=== PATIENT | male | born 1940 | race Caucasian/White ===

== ENCOUNTER 2018-10-28 01:06 | Inpatient (IN) | payer MEDICAID, OTHER ==
[2018-10-28] VITALS (17 sets, daily range): BP systolic 135–177; BP diastolic 64–81; PULSE 71–91; RESP 12–20; Ht 172.7 cm; Wt 84.3 kg
[~2018-10-28] VITALS: Ht 172.7 cm; Wt 84.3 kg
[~2018-10-28 01:06] MED LIST: CALC667C PO; ESCI10TA PO; FURO80TA3 PO; GABA100C PO; LEVO500T48 PO; LOSA50TA14 PO; METO-319 PO; NEPH PO; NIFE60TA18 PO; PANT40TA3 PO; RANI150T5 PO
--- NOTE | 2018-10-28 01:15 | ERD ---
ER Documentation Chief Complaint Chief Complaint sob HPI The patient is a 78-year-old male, presenting to the ER because of acute on c hronic shortness of breath, worse for the last an hour and a half according to EMS. He is due for dialysis today. The history is limited due to language barrier and clinical condition. He denies headache, neck pain, chest pain, abdominal pain, vomiting, dysuria, diarrhea. He does not smoke nor drink Past medical history: Emphysema, chronic kidney disease on hemodialysis Tuesday and Tuesday, hypertension Past surgical history: Left upper extremity AV fistula ROS All systems reviewed and are negative except as per history of present illness. Allergies Allergies: Coded Allergies: Unknown: Unable to obtain (Unverified , 10/28/18) Physical Exam Vitals Vital Signs Date Temp Pulse Resp B/P (MAP) Pulse Ox O2 O2 Flow FiO2 Time Delivery Rate 10/28/18 80 14 132/72 96 Nasal 05:02 (92) Cannula 10/28/18 100 8.0 02:54 10/28/18 84 14 151/59 99 BIPAP 02:29 (89) 10/28/18 88 96 50 01:20 10/28/18 98.5 91 27 141/52 85 01:13 (81) Physical Exam Const: Mild acute distress. Head: Atraumatic. Eyes: Normal Conjunctiva. ENT: Normal External Ears, Nose and Mouth. Neck: Full range of motion. No meningismus. Resp: Bibasilar crackle Cardio: Regular rate and rhythm. Abd: Soft, non distended, normal bowel sounds, non tender. Skin: No petechiae or rashes. Back: No midline or flank tenderness. Ext: No cyanosis, or edema. Neur: Awake and alert. No focal deficit Psych: Limited due to his condition Result Diagram: 10/28/18 0136 10/28/18 0136 Results 24 hrs Laboratory Tests Test 10/28/18 01:36 10/28/18 02:30 White Blood Count 7.5 10^3/ul Red Blood Count 2.64 10^6/ul Hemoglobin 8.9 g/dl Hematocrit 27.6 % Mean Corpuscular Volume 104.5 fl Mean Corpuscular Hemoglobin 33.7 pg Mean Corpuscular Hemoglobin Concent 32.2 g/dl Red Cell Distribution Width 14.1 % Platelet Count 153 10^3/UL Mean Platelet Volume 10.3 fl Immature Granulocytes % 0.400 % Neutrophils % 73.4 % Lymphocytes % 17.9 % Monocytes % 7.8 % Eosinophils % 0.0 % Basophils % 0.5 % Nucleated Red Blood Cells % 0.0 /100WBC Immature Granulocytes # 0.030 10^3/ul Neutrophils # 5.5 10^3/ul Lymphocytes # 1.4 10^3/ul Monocytes # 0.6 10^3/ul Eosinophils # 0.0 10^3/ul Basophils # 0.0 10^3/ul Nucleated Red Blood Cells # 0.0 10^3/ul Prothrombin Time 14.3 Sec Prothrombin Time Ratio 1.1 INR International Normalized Ratio 1.10 Activated Partial Thromboplast Time 33.7 Sec Sodium Level 140 mmol/L Potassium Level 5.2 mmol/L Chloride Level 100 mmol/L Carbon Dioxide Level 30 mmol/L Anion Gap 10 Blood Urea Nitrogen 67 mg/dl Creatinine 9.60 mg/dl Est Glomerular Filtrat Rate mL/min mL/min Glucose Level 131 mg/dl Calcium Level 9.1 mg/dl Total Bilirubin 0.4 mg/dl Direct Bilirubin 0.00 mg/dl Indirect Bilirubin 0.4 mg/dl Aspartate Amino Transf (AST/SGOT) 37 IU/L Alanine Aminotransferase (ALT/SGPT) 36 IU/L Alkaline Phosphatase 90 IU/L Troponin I 0.015 ng/ml Total Protein 6.9 g/dl Albumin 3.8 g/dl Globulin 3.10 g/dl Albumin/Globulin Ratio 1.22 Blood Gas Specimen Source Blood arterial Arterial Blood Date Drawn 10/28/2018 2:30:51 AM Arterial Blood pH (Temp corrected) 7.440 Arterial Blood pCO2 (Temp correct) 41.0 mmhg Arterial Blood pO2 (Temp corrected) 138.9 mmHG Arterial Blood HCO3 27.2 mmol/L Arterial Blood Base Excess 2.8 mmol/L Arterial Blood Oxygen Saturation 98.3 mmHG Kraig Test ACCEPTAB Arterial Blood Gas Puncture Site Right Radial Arterial Blood Carboxyhemoglobin 0.3 % Arterial Blood Methemoglobin 0.5 % Blood Gas A-a O2 Differential 171.5 mmHg Oxyhemoglobin Percent 97.5 % Blood Gas Temperature 37.0 C Blood Gas Respiration Rate 20.0 Blood Gas Actual Respiration Rate 20 Blood Gas Modality MASK - BIPAP FiO2 50.0 % Blood Gas Pressure Support 10 Blood Gas IPAP/EPAP Ratio 15/5 Blood Gas Critical Value Read Back ANGEL Rosa MD Blood Gas Notified Whom KB Blood Gas Notified Time 10/28/2018 2:41:33 AM Current Medications Medications Dose Sig/Soila Start Time Status Last (Trade) Ordered Route PRN Stop Time Admin Dose Reason Admin IV Flush 3 ml PER 10/28/18 (NS 3 ml) PROTOCOL IV 05:00 Ondansetron 4 mg Q6H PRN 10/28/18 HCl (Zofran IV 05:00 Inj) NAUSEA/VOMITI NG 650 mg Q6H PRN 10/28/18 Acetaminophen PO .PAIN 1-3 05:00 (Tylenol OR TEMP Tab) Docusate 100 mg Q12H PRN 10/28/18 Sodium PO 05:00 (Colace) .CONSTIPATION Bisacodyl 5 mg DAILY PRN 10/28/18 (Dulcolax) PO 05:00 .CONSTIPATION Heparin 5,000 unit Q8 SC 10/28/18 Sodium 06:00 (Porcine) (Heparin (5000 Units/1ml)) Procedures/[place] [address] Radiology Main Line: [phone] DIAGNOSTIC IMAGING REPORT Patient: JESSICA LAUREN : 1940 Age: 78 Sex: M MR #: [id number] DOS: 10/28/18 0118 Ordering MD: THIERRY ORTIZ MD Location: E/R Room/Bed: PROCEDURE: Single view chest. CLINICAL INDICATION: Shortness of breath TECHNIQUE: Single view of the chest was obtained COMPARISON: None. FINDINGS: There is generalized interstitial prominence and bronchial wall thickening in the perihilar regions and lung bases. Costophrenic blunting and probable small bilateral effusions. Cardiac silhouette and mediastinal contours are unremarkable. There are atherosclerotic calcifications at the aortic arch. Degenerative marginal spurring throughout the thoracic spine, regional bones otherwise appear intact. IMPRESSION: Interstitial prominence and bronchial wall thickening compatible with mild edema versus inflammation. Probable small bilateral effusions. Aortic atherosclerosis. RPTAT: [facility] x-Hardik Bowns, Physician Date Time Electronically viewed and signed by Physician Bassam on 10/28/2018 03:01 xB/ CC: THIERRY ORTIZ MD [id number] EKG: Read by emergency physician Rate/Rhythm: Normal Sinus Rhythm 84 beats/min QRS, ST, T-waves: No ST elevation, no T inversion Impression: Normal EKG MEDICAL MAKING DECISION: The patient is a 78-year-old male, presenting with acute respiratory failure due to acute fluid overload He was initially put on BiPAP and he was able to tolerate BiPAP well. He was then weaned to 50% Venturi mask and 4 L nasal cannula The differential diagnoses considered include but are not limited to asthma, COPD, pneumonia, pulmonary embolus, pleural effusion, congestive heart failure, pna. Critical Care: Time: 35 minutes excluding all billable procedures. Treatments/Evaluations: Close monitoring and treatment of unstable vital signs, cardiorespiratory, and neurologic status, while maintaining tight balance of fluid, respiratory, and cardiac interventions. Departure Diagnosis: Primary Impression: Respiratory failure, acute Additional Impressions: Fluid overload Anemia Condition: Stable Comments I discussed the findings with the patient. I notified the patient with Dr. Jaquez at 4:10am via [employer], who was made aware of the lab, the treatment, the patient condition. The patient is admitted to Tel Disclaimer: Inadvertent spelling and grammatical errors are likely due to EH R/dictation software use and do not reflect on the overall quality of patient care. Also, please note that the electronic time recorded on this note does not necessarily reflect the actual time of the patient encounter. THIERRY ORTIZ MD Oct 28, 2018 01:15
[2018-10-28] MEDS ORDERED: NACL 0.9% 3 ML SYG IV SCH (05:00)
[2018-10-28] MEDS ORDERED: ONDANSETRON 4 MG INJ IV PRN (05:00)
[2018-10-28] MEDS ORDERED: DOCUSATE SODIUM 100 MG CAP PO PRN (05:00)
[2018-10-28] MEDS ORDERED: BISACODYL (EC) 5 MG TAB PO PRN (05:00)
[2018-10-28] MEDS ORDERED: ACETAMINOPHEN 325 MG TAB PO PRN (05:00)
[2018-10-28] MEDS: HEPARIN 5,000 UNIT/1 ML VIAL SC SCH ×3 (05:18→21:09)
[2018-10-28] MEDS ORDERED: METHYLPREDNISOLONE 125 MG INJ IV ONE (06:00)
[2018-10-28] MEDS ORDERED: PANTOPRAZOLE (EC) 40 MG TAB PO ONE (08:30)
[2018-10-28] MEDS: ALBUTEROL/IPRATROPIUM (NEB) 3 ML AMP HHN SCH ×4 (09:55→21:00)
[2018-10-28] MEDS ORDERED: DEXTROSE 50% 50 ML SYRINGE IV PRN (11:00)
[2018-10-28] MEDS ORDERED: INSULIN REGULAR, HUMAN 100 UNIT/1 ML 3ML VIAL IVP STA (11:11)
--- NOTE | 2018-10-28 11:46 | PN ---
Date/Time of Note Date/Time of Note DATE: 10/28/18 TIME: 11:30 Assessment/Plan VTE Prophylaxis SCD applied (from Nsg): Yes Pharmacological prophylaxis: heparin Lines/Catheters IV Catheter Type (from Nrsg): Saline Lock Urinary Cath still in place: No Assessment/Plan Assessment/Plan 1. Acute respiratory distress - fluid overload vs COPD exacerbation - Nebs PRN - CXR noted with mild edema vs inflammation - patient believes GI issues exacerbate his respiratory distress 2. Acute epigastric discomfort - sounds like GERD and daughter requesting GI workup. Does has an outpatient EGD scheduled for next week - started on PPI BID and Carafate QID 3. Acute COPD exacerbation - started on steroids and will taper based on improvement in respiratory status - Nebs on board - no coughing noted and will hold off on antibiotics 4. ESRD on HD - Nephrology consulted and TTSa schedule for HD 5. Abnl on tele monitoring - repeat EKG shows no abnormalities - discussed with cardiology and most likely artifact 6. hyperkalemia - 5.2. given insulin 7. anemia of chronic disease - no need for transfusions at this time 8. Disposition - HD today and will continue on steroid taper - GI consulted for workup of epigastric discomfort Result Diagram: 10/28/18 0136 10/28/18 0136 Results 24hrs Laboratory Tests Test 10/28/18 01:36 10/28/18 02:30 White Blood Count 7.5 Red Blood Count 2.64 L Hemoglobin 8.9 L Hematocrit 27.6 L Mean Corpuscular Volume 104.5 H Mean Corpuscular Hemoglobin 33.7 H Mean Corpuscular Hemoglobin Concent 32.2 Red Cell Distribution Width 14.1 Platelet Count 153 Mean Platelet Volume 10.3 Immature Granulocytes % 0.400 Neutrophils % 73.4 Lymphocytes % 17.9 Monocytes % 7.8 Eosinophils % 0.0 Basophils % 0.5 Nucleated Red Blood Cells % 0.0 Immature Granulocytes # 0.030 Neutrophils # 5.5 Lymphocytes # 1.4 Monocytes # 0.6 Eosinophils # 0.0 Basophils # 0.0 Nucleated Red Blood Cells # 0.0 Prothrombin Time 14.3 Prothrombin Time Ratio 1.1 INR International Normalized Ratio 1.10 Activated Partial Thromboplast Time 33.7 Sodium Level 140 Potassium Level 5.2 H Chloride Level 100 Carbon Dioxide Level 30 Anion Gap 10 Blood Urea Nitrogen 67 H Creatinine 9.60 H Est Glomerular Filtrat Rate mL/min Glucose Level 131 Calcium Level 9.1 Phosphorus Level 4.3 Total Bilirubin 0.4 Direct Bilirubin 0.00 Indirect Bilirubin 0.4 Aspartate Amino Transf (AST/SGOT) 37 Alanine Aminotransferase (ALT/SGPT) 36 Alkaline Phosphatase 90 Troponin I 0.015 Total Protein 6.9 Albumin 3.8 Globulin 3.10 Albumin/Globulin Ratio 1.22 Blood Gas Specimen Source Blood arterial Arterial Blood Date Drawn 10/28/2018 2:30:51 AM Arterial Blood pH (Temp corrected) 7.440 Arterial Blood pCO2 (Temp correct) 41.0 Arterial Blood pO2 (Temp corrected) 138.9 H Arterial Blood HCO3 27.2 H Arterial Blood Base Excess 2.8 Arterial Blood Oxygen Saturation 98.3 Kraig Test ACCEPTAB Arterial Blood Gas Puncture Site Right Radial Arterial Blood Carboxyhemoglobin 0.3 Arterial Blood Methemoglobin 0.5 Blood Gas A-a O2 Differential 171.5 H Oxyhemoglobin Percent 97.5 Blood Gas Temperature 37.0 Blood Gas Respiration Rate 20.0 Blood Gas Actual Respiration Rate 20 Blood Gas Modality MASK - BIPAP FiO2 50.0 Blood Gas Pressure Support 10 Blood Gas IPAP/EPAP Ratio 15/5 Blood Gas Critical Value Read Back ANGEL Rosa MD Blood Gas Notified Whom KB Blood Gas Notified Time 10/28/2018 2:41:33 AM Subjective 24 Hr Interval Summary Free Text/Dictation Patient denies any acute issues but still with some respiratory issues. States he's better since admission but not back to baseline. Exam/Review of Systems Exam Vitals Vital Signs Date Temp Pulse Resp B/P (MAP) Pulse Ox O2 O2 Flow FiO2 Time Delivery Rate 10/28/18 75 20 95 Nasal 2.0 09:56 Cannula 10/28/18 97.8 135/64 08:11 (87) 10/28/18 50 01:20 Exam General: Patient is currently lying in bed, no acute distress. awake and answering questions appropriately Neck: Supple Chest: Nontender Lungs: Expiratory wheezing. no crackles appreciated Heart: Normal S1-S2, Regular rhythm and rate. no murmurs Abdomen: Soft , abdomen tender to palpation, nondistended , bowel sounds are present. No guarding no rebound tenderness Extremities: Normal to inspection, no edema no cyanosis Results Results 24hrs Laboratory Tests Test 10/28/18 01:36 10/28/18 02:30 White Blood Count 7.5 Red Blood Count 2.64 L Hemoglobin 8.9 L Hematocrit 27.6 L Mean Corpuscular Volume 104.5 H Mean Corpuscular Hemoglobin 33.7 H Mean Corpuscular Hemoglobin Concent 32.2 Red Cell Distribution Width 14.1 Platelet Count 153 Mean Platelet Volume 10.3 Immature Granulocytes % 0.400 Neutrophils % 73.4 Lymphocytes % 17.9 Monocytes % 7.8 Eosinophils % 0.0 Basophils % 0.5 Nucleated Red Blood Cells % 0.0 Immature Granulocytes # 0.030 Neutrophils # 5.5 Lymphocytes # 1.4 Monocytes # 0.6 Eosinophils # 0.0 Basophils # 0.0 Nucleated Red Blood Cells # 0.0 Prothrombin Time 14.3 Prothrombin Time Ratio 1.1 INR International Normalized Ratio 1.10 Activated Partial Thromboplast Time 33.7 Sodium Level 140 Potassium Level 5.2 H Chloride Level 100 Carbon Dioxide Level 30 Anion Gap 10 Blood Urea Nitrogen 67 H Creatinine 9.60 H Est Glomerular Filtrat Rate mL/min Glucose Level 131 Calcium Level 9.1 Phosphorus Level 4.3 Total Bilirubin 0.4 Direct Bilirubin 0.00 Indirect Bilirubin 0.4 Aspartate Amino Transf (AST/SGOT) 37 Alanine Aminotransferase (ALT/SGPT) 36 Alkaline Phosphatase 90 Troponin I 0.015 Total Protein 6.9 Albumin 3.8 Globulin 3.10 Albumin/Globulin Ratio 1.22 Blood Gas Specimen Source Blood arterial Arterial Blood Date Drawn 10/28/2018 2:30:51 AM Arterial Blood pH (Temp corrected) 7.440 Arterial Blood pCO2 (Temp correct) 41.0 Arterial Blood pO2 (Temp corrected) 138.9 H Arterial Blood HCO3 27.2 H Arterial Blood Base Excess 2.8 Arterial Blood Oxygen Saturation 98.3 Kraig Test ACCEPTAB Arterial Blood Gas Puncture Site Right Radial Arterial Blood Carboxyhemoglobin 0.3 Arterial Blood Methemoglobin 0.5 Blood Gas A-a O2 Differential 171.5 H Oxyhemoglobin Percent 97.5 Blood Gas Temperature 37.0 Blood Gas Respiration Rate 20.0 Blood Gas Actual Respiration Rate 20 Blood Gas Modality MASK - BIPAP FiO2 50.0 Blood Gas Pressure Support 10 Blood Gas IPAP/EPAP Ratio 15/5 Blood Gas Critical Value Read Back ANGEL Rosa MD Blood Gas Notified Whom ASHOK Blood Gas Notified Time 10/28/2018 2:41:33 AM Medications Medication Current Medications IV Flush (NS 3 ml) 3 ml PER PROTOCOL IV ; Start 10/28/18 at 05:00 Ondansetron HCl (Zofran Inj) 4 mg Q6H PRN IV NAUSEA/VOMITING; Start 10/28/18 at 05:00 Acetaminophen (Tylenol Tab) 650 mg Q6H PRN PO .PAIN 1-3 OR TEMP; Start 10/28/18 at 05:00 Docusate Sodium (Colace) 100 mg Q12H PRN PO .CONSTIPATION; Start 10/28/18 at 05:00 Bisacodyl (Dulcolax) 5 mg DAILY PRN PO .CONSTIPATION; Start 10/28/18 at 05:00 Heparin Sodium (Porcine) (Heparin (5000 Units/1ml)) 5,000 unit Q8 SC Last administered on 10/28/18at 05:18; Admin Dose 5,000 UNIT; Start 10/28/18 at 06:00 Albuterol/ Ipratropium (Duoneb) 3 ml Q4H RESP THERAPY HHN Last administered on 10/28/18at 09:55; Admin Dose 3 ML; Start 10/28/18 at 09:00 Methylprednisolone Sodium Succinate (Solu-Medrol) 30 mg Q8 IV ; Start 10/28/18 at 14:00 Sucralfate (Carafate) 1 gm QID PO ; Start 10/28/18 at 09:30 Pantoprazole (Protonix Tab) 40 mg BID PO ; Start 10/29/18 at 06:00 Dextrose (D50w Syringe) ONCE PRN IV DECREASED GLUCOSE; Start 10/28/18 at 11:00; Stop 10/28/18 at 23:00 ANGELA ATWOOD MD Oct 28, 2018 11:40
[2018-10-28] MEDS: SUCRALFATE 1 GM TAB PO SCH ×4 (11:49→21:02)
[2018-10-28] MEDS: METHYLPREDNISOLONE 40 MG INJ IV SCH ×2 (14:29→21:02)
--- NOTE | 2018-10-28 17:01 | CONS ---
Assessment/Plan Assessment/Plan Hospital Course (Demo Recall) Assessment/Plan (Daily) Assessment: Questionable abdominal discomfort Anemia, likely of chronic disease Acute respiratory distress ESRD on hemodialysis Plan: No clear indication for inpatient upper endoscopy as patient is completely asymptomatic. Follow up with outpatient GI for planned endoscopy Continue proxonix BID Continue carafate Monitor H/H and transfuse for hemoglobin less than 7.5 Patient seen in collaboration with Dr. Campbell CC: LISA CAMPBELL MD ; Consultation Date/Type/Reason Admit Date/Time Oct 28, 2018 at 04:11 Date of Consultation: Oct 28, 2018 Type of Consult gastroenterology Reason for Consultation epigastric discomfort Requesting Provider: ANGELA ATWOOD MD Date/Time of Note DATE: 10/28/18 TIME: 16:05 Hx of Present Illness 78 y/o male with a history of ESRD on dialysis, COPD, admitted for acute respiratory distress. He had prior episode of shortness of breath after dialysis. Per the patient's daughter Ag, he has a vague history of what sounds like epigastric complaints although not clear whether related to reflux or other etiology. The patient was interviewed with [facility] etcher electrolytic and denies any hematemesis, nausea or vomiting, any epigastric pain or burning, or abdominal pain. He reports 3-4 loose stools per day, denies any bleeding. He rep orts he had a prior endoscopy in [facility] about 3-4 years ago which was normal. He denies any prior colonoscopy. He is scheduled for an upper endoscopy as outpatient next week. A 10 point review of systems is otherwise negative except as mentioned in the above HPI. Past Medical History Medications Current Medications IV Flush (NS 3 ml) 3 ml PER PROTOCOL IV ; Start 10/28/18 at 05:00 Ondansetron HCl (Zofran Inj) 4 mg Q6H PRN IV NAUSEA/VOMITING; Start 10/28/18 at 05:00 Acetaminophen (Tylenol Tab) 650 mg Q6H PRN PO .PAIN 1-3 OR TEMP; Start 10/28/18 at 05:00 Docusate Sodium (Colace) 100 mg Q12H PRN PO .CONSTIPATION; Start 10/28/18 at 05:00 Bisacodyl (Dulcolax) 5 mg DAILY PRN PO .CONSTIPATION; Start 10/28/18 at 05:00 Heparin Sodium (Porcine) (Heparin (5000 Units/1ml)) 5,000 unit Q8 SC Last administered on 10/28/18at 14:35; Admin Dose 5,000 UNIT; Start 10/28/18 at 06:00 Albuterol/ Ipratropium (Duoneb) 3 ml Q4H RESP THERAPY HHN Last administered on 10/28/18at 12:46; Admin Dose 3 ML; Start 10/28/18 at 09:00 Methylprednisolone Sodium Succinate (Solu-Medrol) 30 mg Q8 IV Last administered on 10/28/18at 14:29; Admin Dose 30 MG; Start 10/28/18 at 14:00 Sucralfate (Carafate) 1 gm QID PO Last administered on 10/28/18at 11:49; Admin Dose 1 GM; Start 10/28/18 at 09:30 Pantoprazole (Protonix Tab) 40 mg BID PO ; Start 10/29/18 at 06:00 Dextrose (D50w Syringe) ONCE PRN IV DECREASED GLUCOSE; Start 10/28/18 at 11:00; Stop 10/28/18 at 23:00 Allergies: Coded Allergies: Unknown: Unable to obtain (Unverified , 10/28/18) Social History Smoking Status: Unknown if ever smoked Exam/Review of Systems Exam Vitals Vital Signs Date Temp Pulse Resp B/P (MAP) Pulse Ox O2 O2 Flow FiO2 Time Delivery Rate 10/28/18 98.0 91 20 174/74 93 Nasal 15:11 (107) Cannula 10/28/18 2.0 12:49 10/28/18 50 01:20 Constitutional: alert, oriented Psych: no complaints Head: normocephalic Eyes: nl conjunctiva ENMT: nl external ears & nose, nl lips & teeth Neck: supple Respiratory: clear to auscultation, normal air movement Cardiovascular: regular rate and rhythm Gastrointestinal: soft Musculoskeletal: nl extremities to inspection Extremities: normal pulses Neurological: DOBBY LOOM WEAVER II-XII intact, nl speech Skin: nl turgor Results Result Diagram: 10/28/1813510/28/18 0136 Results 24hrs Laboratory Tests Test 10/28/18 01:36 10/28/18 02:30 10/28/18 11:49 White Blood Count 7.5 Red Blood Count 2.64 L Hemoglobin 8.9 L Hematocrit 27.6 L Mean Corpuscular Volume 104.5 H Mean Corpuscular Hemoglobin 33.7 H Mean Corpuscular 32.2 Hemoglobin Concent Red Cell Distribution Width 14.1 Platelet Count 153 Mean Platelet Volume 10.3 Immature Granulocytes % 0.400 Neutrophils % 73.4 Lymphocytes % 17.9 Monocytes % 7.8 Eosinophils % 0.0 Basophils % 0.5 Nucleated Red Blood Cells % 0.0 Immature Granulocytes # 0.030 Neutrophils # 5.5 Lymphocytes # 1.4 Monocytes # 0.6 Eosinophils # 0.0 Basophils # 0.0 Nucleated Red Blood Cells # 0.0 Prothrombin Time 14.3 Prothrombin Time Ratio 1.1 INR International 1.10 Normalized Ratio Activated 33.7 Partial Thromboplast Time Sodium Level 140 Potassium Level 5.2 H Chloride Level 100 Carbon Dioxide Level 30 Anion Gap 10 Blood Urea Nitrogen 67 H Creatinine 9.60 H Est Glomerular Filtrat Rate mL/min Glucose Level 131 Calcium Level 9.1 Phosphorus Level 4.3 Total Bilirubin 0.4 Direct Bilirubin 0.00 Indirect Bilirubin 0.4 Aspartate Amino 37 Transf (AST/SGOT) Alanine 36 Aminotransferase (ALT/SGPT) Alkaline Phosphatase 90 Troponin I 0.015 Total Protein 6.9 Albumin 3.8 Globulin 3.10 Albumin/Globulin Ratio 1.22 Blood Gas Specimen Source Blood arterial Arterial Blood Date Drawn 10/28/2018 2:30:51 AM Arterial Blood pH 7.440 (Temp corrected) Arterial Blood pCO2 41.0 (Temp correct) Arterial Blood pO2 138.9 H (Temp corrected) Arterial Blood HCO3 27.2 H Arterial Blood Base Excess 2.8 Arterial Blood 98.3 Oxygen Saturation Kraig Test ACCEPTAB Arterial Blood Gas Right Radial Puncture Site Arterial 0.3 Blood Carboxyhemoglobin Arterial Blood Methemoglobin 0.5 Blood Gas A-a O2 171.5 H Differential Oxyhemoglobin Percent 97.5 Blood Gas Temperature 37.0 Blood Gas Respiration Rate 20.0 Blood Gas Actual 20 Respiration Rate Blood Gas Modality MASK - BIPAP FiO2 50.0 Blood Gas Pressure Support 10 Blood Gas IPAP/EPAP Ratio 15/5 Blood Gas Critical Value ANGEL Rosa MD Read Back Blood Gas Notified Whom KB Blood Gas Notified Time 10/28/2018 2:41:33 AM Bedside Glucose 167 Medications Medication Current Medications IV Flush (NS 3 ml) 3 ml PER PROTOCOL IV ; Start 10/28/18 at 05:00 Ondansetron HCl (Zofran Inj) 4 mg Q6H PRN IV NAUSEA/VOMITING; Start 10/28/18 at 05:00 Acetaminophen (Tylenol Tab) 650 mg Q6H PRN PO .PAIN 1-3 OR TEMP; Start 10/28/18 at 05:00 Docusate Sodium (Colace) 100 mg Q12H PRN PO .CONSTIPATION; Start 10/28/18 at 05:00 Bisacodyl (Dulcolax) 5 mg DAILY PRN PO .CONSTIPATION; Start 10/28/18 at 05:00 Heparin Sodium (Porcine) (Heparin (5000 Units/1ml)) 5,000 unit Q8 SC Last administered on 10/28/18at 14:35; Admin Dose 5,000 UNIT; Start 10/28/18 at 06:00 Albuterol/ Ipratropium (Duoneb) 3 ml Q4H RESP THERAPY HHN Last administered on 10/28/18at 12:46; Admin Dose 3 ML; Start 10/28/18 at 09:00 Methylprednisolone Sodium Succinate (Solu-Medrol) 30 mg Q8 IV Last administered on 10/28/18at 14:29; Admin Dose 30 MG; Start 10/28/18 at 14:00 Sucralfate (Carafate) 1 gm QID PO Last administered on 10/28/18at 11:49; Admin Dose 1 GM; Start 10/28/18 at 09:30 Pantoprazole (Protonix Tab) 40 mg BID PO ; Start 10/29/18 at 06:00 Dextrose (D50w Syringe) ONCE PRN IV DECREASED GLUCOSE; Start 10/28/18 at 11:0 0; Stop 10/28/18 at 23:00 JORGE L GAXIOLA NP Oct 28, 2018 16:22
--- NOTE | 2018-10-28 17:39 | QN ---
Documentation Comment [id number] FEI ENCARNACION MD Oct 28, 2018 17:39
--- NOTE | 2018-10-28 23:22 | CONS ---
DATE OF ADMISSION: 10/28/2018 DATE OF CONSULTATION: TYPE OF CONSULTATION: Nephrology. HISTORY OF PRESENT ILLNESS: The patient is a 78-year-old male who has a history of hypertension, ESRD, presented to this hospital with short of breath and also noted to have epigastric discomfort. The patient is being treated for epigastric discomfort, COPD exacerbation. The patient is a very poor historian, does not know the name of the dialysis center and the shipping & receiving lead which place he goes to. He gets dialysis Tuesday, Tuesday, Tuesday. Sodium 140, potassium 5.2, hemoglobin of 8.9, and patient's chest x-ray shows pulmonary patient has interstitial prominence and bronchial wall thickening consistent with the mild edema. The patient is denying any chest pain per patient at this point. PAST MEDICAL HISTORY: Hypertension, ESRD. ALLERGY HISTORY: NEGATIVE. FAMILY HISTORY: Denies. SOCIAL HISTORY: Denies. MEDICATION HISTORY: He does not know the name of medicines. REVIEW OF SYSTEMS: HEENT: Unremarkable. RESPIRATORY: Some cough or short of breath. CARDIOVASCULAR: No chest pain or palpitations. ABDOMEN: He denies any abdominal pain, hematemesis or melena. EXTREMITIES: He denies any swelling. CENTRAL NERVOUS SYSTEM: No numbness, weakness, tingling. PHYSICAL EXAMINATION: GENERAL: The patient is awake and alert. VITAL SIGNS: Pulse of 90, blood pressure 134/74. HEAD: Atraumatic, normocephalic. Pupils equal, reactive to light. NECK: Supple, no JVD. LUNGS: Basal rales. CARDIOVASCULAR: S1, S2 normal. ABDOMEN: Soft, nontender. Bowel sounds present. No palpable mass or hepatosplenomegaly. EXTREMITIES: No cyanosis or clubbing. Trace edema. CENTRAL NERVOUS SYSTEM: The patient is awake, alert, moving both upper and lower extremities. IMPRESSION: 1. End-stage renal disease. 2. Hyperkalemia. 3. Pulmonary edema. 4. Hypertension. 5. Anemia of chronic kidney disease. 6. pt with incomplete database. PLAN: To continue renal diet. The patient is currently on Tylenol. The patient is on albuterol. The patient is on heparin, methylprednisolone. Patient is on Zofran, Protonix, Sucralfate. The patient will be getting hemodialysis, which has been ordered. Thank you, Dr. Carreon, for kindly asking me to see this patient in nephrology consultation. Dictated By: FEI KRUEGER/NTS Conf#: [id number] DID#: [id number] MTDD
[2018-10-28] MEDS: hydrALAzine 20 MG INJ IV PRN (23:28)
[2018-10-29] MEDS: ALBUTEROL/IPRATROPIUM (NEB) 3 ML AMP HHN SCH ×6 (01:08→20:05)
[2018-10-29 04:08] VITALS: BP 181/81; PULSE 87; RESP 20
[2018-10-29] MEDS: hydrALAzine 20 MG INJ IV PRN ×2 (04:14→23:47)
[2018-10-29 04:55] VITALS: BP 154/67; PULSE 87
[2018-10-29] MEDS: METHYLPREDNISOLONE 40 MG INJ IV SCH ×2 (05:14→20:29)
[2018-10-29] MEDS: PANTOPRAZOLE (EC) 40 MG TAB PO SCH ×3 (05:14→20:28)
[2018-10-29] MEDS: HEPARIN 5,000 UNIT/1 ML VIAL SC SCH ×3 (05:19→21:09)
[2018-10-29] MEDS ORDERED: PANTOPRAZOLE (EC) 40 MG TAB PO SCH (06:00)
[2018-10-29 07:29] VITALS: BP 140/64; PULSE 94; RESP 19
[2018-10-29] MEDS: SUCRALFATE 1 GM TAB PO SCH ×4 (08:10→20:29)
[2018-10-29] MEDS ORDERED: INSULIN REGULAR, HUMAN 100 UNIT/1 ML 3ML VIAL IVP STA (08:29)
[2018-10-29] MEDS ORDERED: NA POLYST SULFON 15 GM/60 ML BTL PO ONE (08:30)
[2018-10-29] MEDS ORDERED: DEXTROSE 50% 50 ML SYRINGE IV PRN (08:30)
--- NOTE | 2018-10-29 09:41 | PN ---
Date/Time of Note Date/Time of Note DATE: 10/29/18 TIME: 09:34 Assessment/Plan VTE Prophylaxis Risk score (from Ns)>0 risk: 6 SCD applied (from Ns): Yes Pharmacological prophylaxis: heparin Lines/Catheters IV Catheter Type (from Nrs): Saline Lock Urinary Cath still in place: No Assessment/Plan Assessment/Plan 1. Acute respiratory distress- improving - Improving and wheezing resolved. taper off O2 as tolerated to maintain saturations >90% - fluid overload vs COPD exacerbation - Nebs PRN - CXR noted with mild edema vs inflammation 2. Acute epigastric discomfort - GI consultation appreciated and recommending follow up as outpatient for scheduled EGD - continue on PPI BID and Carafate QID 3. Acute COPD exacerbation - will taper steroids to BID today - Nebs on board - no coughing noted and will hold off on antibiotics 4. ESRD on HD - Nephrology consultation appreciated, TTSa schedule for HD 5. Hyperkalemia - will give insulin/dextrose and Kayexalate 6. Anemia of chronic disease - no need for transfusions at this time 7. Disposition - Continue steroid taper and weaning O2 as tolerated - PT for discharge planning Result Diagram: 10/29/18 0601 10/29/18 0601 Results 24hrs Laboratory Tests Test 10/28/18 11:49 10/29/18 06:01 Bedside Glucose 167 White Blood Count 12.7 #H Red Blood Count 2.88 L Hemoglobin 9.6 L Hematocrit 29.7 L Mean Corpuscular Volume 103.1 H Mean Corpuscular Hemoglobin 33.3 H Mean Corpuscular Hemoglobin Concent 32.3 Red Cell Distribution Width 13.9 Platelet Count 168 Mean Platelet Volume 10.3 Immature Granulocytes % 0.900 H Neutrophils % Segmented Neutrophils % (Manual) 95 H Band Neutrophils % (Manual) 2 Lymphocytes % Lymphocytes % (Manual) 1 L Monocytes % Monocytes % (Manual) 2 Eosinophils % Basophils % Nucleated Red Blood Cells % 0.0 Immature Granulocytes # 0.110 H Neutrophils # Neutrophils # (Manual) 12.1 H Band Neutrophils # 0.2 Lymphocytes (Manual) 0.1 L Lymphocytes # Monocytes # Monocytes # (Manual) 0.2 L Eosinophils # Basophils # Nucleated Red Blood Cells # Platelet Estimate NORMAL Anisocytosis 1+ Macrocytosis 1+ Sodium Level 136 Potassium Level 5.3 H Chloride Level 98 Carbon Dioxide Level 30 Anion Gap 8 Blood Urea Nitrogen 44 #H Creatinine 7.14 #H Est Glomerular Filtrat Rate mL/min Glucose Level 179 Hemoglobin A1c 5.3 Calcium Level 9.0 Total Bilirubin 0.6 Direct Bilirubin 0.00 Indirect Bilirubin 0.6 Aspartate Amino Transf (AST/SGOT) 25 Alanine Aminotransferase (ALT/SGPT) 30 Alkaline Phosphatase 86 Total Protein 7.1 Albumin 3.9 Globulin 3.20 Albumin/Globulin Ratio 1.21 Triglycerides Level 77 Cholesterol Level 153 LDL Cholesterol, Calculated 93 HDL Cholesterol 45 Cholesterol/HDL Ratio 3.4 Thyroid Stimulating Hormone (TSH) 0.380 L Subjective 24 Hr Interval Summary Free Text/Dictation Patient states hes still not feeling back to baseline but better than admission. No acute overnight events. Exam/Review of Systems Exam Vitals Vital Signs Date Temp Pulse Resp B/P (MAP) Pulse Ox O2 O2 Flow FiO2 Time Delivery Rate 10/29/18 89 15 94 Nasal 2.0 08:51 Cannula 10/29/18 98.1 140/64 07:29 (89) 10/28/18 50 01:20 Intake and Output 10/28/18 10/28/18 10/29/18 1515:00 23:00 07:00 OutputOutput Total 3400 ml BalanceBalance -3400 ml Exam General: Patient is currently lying in bed, no acute distress Neck: Supple Chest: Nontender Lungs: Expiratory wheezing. no crackles appreciated Heart: Normal S1-S2, Regular rhythm and rate. no murmurs Abdomen: Soft , mildly epigastric tenderness to palpation, nondistended , bowel sounds are present. No guarding no rebound tenderness Extremities: Normal to inspection, no edema no cyanosis Results Results 24hrs Laboratory Tests Test 10/28/18 11:49 10/29/18 06:01 Bedside Glucose 167 White Blood Count 12.7 #H Red Blood Count 2.88 L Hemoglobin 9.6 L Hematocrit 29.7 L Mean Corpuscular Volume 103.1 H Mean Corpuscular Hemoglobin 33.3 H Mean Corpuscular Hemoglobin Concent 32.3 Red Cell Distribution Width 13.9 Platelet Count 168 Mean Platelet Volume 10.3 Immature Granulocytes % 0.900 H Neutrophils % Segmented Neutrophils % (Manual) 95 H Band Neutrophils % (Manual) 2 Lymphocytes % Lymphocytes % (Manual) 1 L Monocytes % Monocytes % (Manual) 2 Eosinophils % Basophils % Nucleated Red Blood Cells % 0.0 Immature Granulocytes # 0.110 H Neutrophils # Neutrophils # (Manual) 12.1 H Band Neutrophils # 0.2 Lymphocytes (Manual) 0.1 L Lymphocytes # Monocytes # Monocytes # (Manual) 0.2 L Eosinophils # Basophils # Nucleated Red Blood Cells # Platelet Estimate NORMAL Anisocytosis 1+ Macrocytosis 1+ Sodium Level 136 Potassium Level 5.3 H Chloride Level 98 Carbon Dioxide Level 30 Anion Gap 8 Blood Urea Nitrogen 44 #H Creatinine 7.14 #H Est Glomerular Filtrat Rate mL/min Glucose Level 179 Hemoglobin A1c 5.3 Calcium Level 9.0 Total Bilirubin 0.6 Direct Bilirubin 0.00 Indirect Bilirubin 0.6 Aspartate Amino Transf (AST/SGOT) 25 Alanine Aminotransferase (ALT/SGPT) 30 Alkaline Phosphatase 86 Total Protein 7.1 Albumin 3.9 Globulin 3.20 Albumin/Globulin Ratio 1.21 Triglycerides Level 77 Cholesterol Level 153 LDL Cholesterol, Calculated 93 HDL Cholesterol 45 Cholesterol/HDL Ratio 3.4 Thyroid Stimulating Hormone (TSH) 0.380 L Medications Medication Current Medications IV Flush (NS 3 ml) 3 ml PER PROTOCOL IV ; Start 10/28/18 at 05:00 Ondansetron HCl (Zofran Inj) 4 mg Q6H PRN IV NAUSEA/VOMITING; Start 10/28/18 at 05:00 Acetaminophen (Tylenol Tab) 650 mg Q6H PRN PO .PAIN 1-3 OR TEMP; Start 10/28/18 at 05:00 Docusate Sodium (Colace) 100 mg Q12H PRN PO .CONSTIPATION; Start 10/28/18 at 05:00 Bisacodyl (Dulcolax) 5 mg DAILY PRN PO .CONSTIPATION; Start 10/28/18 at 05:00 Heparin Sodium (Porcine) (Heparin (5000 Units/1ml)) 5,000 unit Q8 SC Last administered on 10/29/18at 05:19; Admin Dose 5,000 UNIT; Start 10/28/18 at 06:00 Albuterol/ Ipratropium (Duoneb) 3 ml Q4H RESP THERAPY HHN Last administered on 10/29/18at 08:50; Admin Dose 3 ML; Start 10/28/18 at 09:00 Methylprednisolone Sodium Succinate (Solu-Medrol) 30 mg Q8 IV Last administered on 10/29/18at 05:14; Admin Dose 30 MG; Start 10/28/18 at 14:00 Sucralfate (Carafate) 1 gm QID PO Last administered on 10/29/18 08:10; Admin Dose 1 GM; Start 10/28/18 at 09:30 Pantoprazole (Protonix Tab) 40 mg BID PO Last administered on 10/29/18at 08:10; Admin Dose 40 MG; Start 10/29/18 at 06:00 Hydralazine HCl (Apresoline) 10 mg Q4H PRN IV ELEVATED BLOOD PRESSURE Last administered on 10/29/18at 04:14; Admin Dose 10 MG; Start 10/28/18 at 20:00 Dextrose (D50w Syringe) ONCE PRN IV DECREASED GLUCOSE Last administered on 10/29/18 09:23; Admin Dose 50 ML; Start 10/29/18 at 08:30; Stop 10/29/18 at 12:00 ANGELA ATWOOD MD Oct 29, 2018 09:41
[2018-10-29 11:31] VITALS: BP 141/64; PULSE 100; RESP 19
--- NOTE | 2018-10-29 13:01 | RADRPT ---
Vent Rate: 83 bpm RR Interval: 728 msec AR Interval: 186 msec QRS Duration: 97 msec QT Interval: 392 msec QTC Interval: 459 msec P-R-T [place]: 67 - 18 - 51 degrees Sinus rhythm...normal P axis, V-rate 50- 99 Electronically Signed By: Hao Figueroa
--- NOTE | 2018-10-29 13:32 | CONS ---
Assessment/Plan Assessment/Plan Hospital Course (Demo Recall) 1. End-stage renal disease. 2. Hyperkalemia. 3. Pulmonary edema. 4. Hypertension. 5. Anemia of chronic kidney disease. 6. incomplete database. 7. HYPERTHYROIDISM 8. Overweight Assessment/Plan (Daily) - renal diet. -c/w Phoslo, pt home med, incomplete home med -c/w hemodialysis -c/w Hydralazine -need B12 level -phos. is normal -HD was yesterday Consultation Date/Type/Reason Admit Date/Time Oct 28, 2018 at 04:11 Initial Consult Date 10/28/18 Type of Consult 10/28/[address] Cornell Requesting Provider: ANGELA ATWOOD MD Date/Time of Note DATE: 10/29/18 TIME: 13:29 24 HR Interval Summary Constitutional: no complaints, improved Exam/Review of Systems Exam Vitals Vital Signs Date Temp Pulse Resp B/P (MAP) Pulse Ox O2 O2 Flow FiO2 Time Delivery Rate 10/29/18 81 16 97 Nasal 2.0 12:44 Cannula 10/29/18 97.9 141/64 11:31 (89) 10/28/18 50 01:20 Intake and Output 10/28/18 10/28/18 10/29/18 1515:00 23:00 07:00 OutputOutput Total 3400 ml BalanceBalance -3400 ml Exam No acute distress, no events overnight. Eyes: anicteric, EOM's intact, no pallor Nose: no rhinorrhea Neck: supple, no thyromegaly, no carotid bruits Lungs: clear bilaterally, decreased. CVS: regular rate and rhythm, no murmurs Abdomen: soft, bowel sounds present. Rectal: differed. External genitalia: no lesions. Extremities: no edema, DP pulses are palpable Neuro: alert and oriented x 3 Skin: no lesions, left arm AV fistula Results Result Diagram: 10/29/18 0601 10/29/18 0601 Results 24hrs Laboratory Tests Test 10/29/18 06:01 10/29/18 09:16 10/29/18 10:11 White Blood Count 12.7 #H Red Blood Count 2.88 L Hemoglobin 9.6 L Hematocrit 29.7 L Mean Corpuscular Volume 103.1 H Mean Corpuscular Hemoglobin 33.3 H Mean Corpuscular Hemoglobin Concent 32.3 Red Cell Distribution Width 13.9 Platelet Count 168 Mean Platelet Volume 10.3 Immature Granulocytes % 0.900 H Neutrophils % Segmented Neutrophils % (Manual) 95 H Band Neutrophils % (Manual) 2 Lymphocytes % Lymphocytes % (Manual) 1 L Monocytes % Monocytes % (Manual) 2 Eosinophils % Basophils % Nucleated Red Blood Cells % 0.0 Immature Granulocytes # 0.110 H Neutrophils # Neutrophils # (Manual) 12.1 H Band Neutrophils # 0.2 Lymphocytes (Manual) 0.1 L Lymphocytes # Monocytes # Monocytes # (Manual) 0.2 L Eosinophils # Basophils # Nucleated Red Blood Cells # Platelet Estimate NORMAL Anisocytosis 1+ Macrocytosis 1+ Sodium Level 136 Potassium Level 5.3 H Chloride Level 98 Carbon Dioxide Level 30 Anion Gap 8 Blood Urea Nitrogen 44 #H Creatinine 7.14 #H Est Glomerular Filtrat Rate mL/min Glucose Level 179 Hemoglobin A1c 5.3 Calcium Level 9.0 Total Bilirubin 0.6 Direct Bilirubin 0.00 Indirect Bilirubin 0.6 Aspartate Amino Transf (AST/SGOT) 25 Alanine Aminotransferase (ALT/SGPT) 30 Alkaline Phosphatase 86 Total Protein 7.1 Albumin 3.9 Globulin 3.20 Albumin/Globulin Ratio 1.21 Triglycerides Level 77 Cholesterol Level 153 LDL Cholesterol, Calculated 93 HDL Cholesterol 45 Cholesterol/HDL Ratio 3.4 Thyroid Stimulating Hormone (TSH) 0.380 L Bedside Glucose 228 H 192 Medications Medication Current Medications IV Flush (NS 3 ml) 3 ml PER PROTOCOL IV ; Start 10/28/18 at 05:00 Ondansetron HCl (Zofran Inj) 4 mg Q6H PRN IV NAUSEA/VOMITING; Start 10/28/18 at 05:00 Acetaminophen (Tylenol Tab) 650 mg Q6H PRN PO .PAIN 1-3 OR TEMP; Start 10/28/18 at 05:00 Docusate Sodium (Colace) 100 mg Q12H PRN PO .CONSTIPATION; Start 10/28/18 at 05:00 Bisacodyl (Dulcolax) 5 mg DAILY PRN PO .CONSTIPATION; Start 10/28/18 at 05:00 Heparin Sodium (Porcine) (Heparin (5000 Units/1ml)) 5,000 unit Q8 SC Last administered on 10/29/18at 05:19; Admin Dose 5,000 UNIT; Start 10/28/18 at 06:00 Albuterol/ Ipratropium (Duoneb) 3 ml Q4H RESP THERAPY HHN Last administered on 10/29/18 12:43; Admin Dose 3 ML; Start 10/28/18 at 09:00 Sucralfate (Carafate) 1 gm QID PO Last administered on 10/29/18 12:56; Admin Dose 1 GM; Start 10/28/18 at 09:30 Pantoprazole (Protonix Tab) 40 mg BID PO Last administered on 10/29/18 08:10; Admin Dose 40 MG; Start 10/29/18 at 06:00 Hydralazine HCl (Apresoline) 10 mg Q4H PRN IV ELEVATED BLOOD PRESSURE Last administered on 10/29/18 04:14; Admin Dose 10 MG; Start 10/28/18 at 20:00 Methylprednisolone Sodium Succinate (Solu-Medrol) 30 mg BID IV ; Start 10/29/18 at 21:00 ERICK VAUGHAN NP Oct 29, 2018 13:32
[2018-10-29 15:15] VITALS: BP 149/67; PULSE 92; RESP 19
[2018-10-29] MEDS: ESCITALOPRAM 10 MG TAB PO SCH (16:31)
[2018-10-29] MEDS: GABAPENTIN 100 MG CAP PO SCH (16:31)
[2018-10-29] MEDS: MULTIVIT/CA CARB/B CMPLX/FA TAB PO SCH (16:31)
[2018-10-29] MEDS: FUROSEMIDE 40 MG TAB PO SCH (16:31)
[2018-10-29] MEDS: METOPROLOL (XL) 50 MG TAB PO SCH (16:32)
--- NOTE | 2018-10-29 17:32 | PN ---
Date/Time of Note Date/Time of Note DATE: 10/29/18 TIME: 17:25 Assessment/Plan VTE Prophylaxis Risk score (from Nsg)>0 risk: 5 SCD applied (from Nsg): Yes Pharmacological prophylaxis: heparin Lines/Catheters IV Catheter Type (from Nrsg): Saline Lock Urinary Cath still in place: No Assessment/Plan Assessment/Plan Assessment: Epigastric pain Melena Anemia, likely of chronic disease Acute respiratory distress ESRD on hemodialysis Plan: EGD tomorrow Keep n.p.o. after midnight Continue proxonix BID Continue carafate Monitor H/H and transfuse for hemoglobin less than 7.5 Patient seen in collaboration with Dr. Campbell Subjective: Patient is complaining of epigastric pain and chest discomfort. He states he gets black stools every now and then. The plan is to perform an EGD tomorrow. Risks and benefits of the procedure have been discussed with the patient. Patient is agreeable to the procedure. PHYSICAL EXAMINATION: GENERAL: Well developed, well nourished, alert & oriented x 3, in no acute distress SKIN: No lesions, no stigmata chronic liver disease, no evidence of bleeding diathesis LYMPHATIC: No palpable lymphadenopathy. HEAD: Normocephalic, atraumatic, no tenderness. EYES: Pupils equal reactive to light and accommodation, full extraocular movements, sclera clear, non-icteric, no discharge. EARS/NOSE AND THROAT: Ears normal, nose normal, oropharynx normal, oral me mbranes well hydrated without lesions. NECK: Supple, no masses, thyroid normal, JVP within normal limits, carotids normal without bruits. CHEST: Inspection within normal limits. CARDIOVASCULAR: Heart: Regular rate and rhythm, no murmurs, gallops or rubs. Peripheral pulses present within normal limits, no cyanosis, clubbing or edemas. No pulsatile abdominal mass RESPIRATORY: Lungs clear to auscultation and percussion, no wheezing, no rubs GASTROINTESTINAL AND LIVER: Abdomen: Soft, epigastric tenderness, non-distended, no hernias, no masses, no organomegaly, no ascites, no guarding, no rebound t enderness, normoactive bowel sounds. Rectal: Deferred. GENITOURINARY: Male genitalia within normal limits. EXTREMITIES: No cyanosis, clubbing or edema. Result Diagram: 10/29/18 0610/29/18 0601 Results 24hrs Laboratory Tests Test 10/29/18 06:01 10/29/18 09:16 10/29/18 10:11 White Blood Count 12.7 #H Red Blood Count 2.88 L Hemoglobin 9.6 L Hematocrit 29.7 L Mean Corpuscular Volume 103.1 H Mean Corpuscular Hemoglobin 33.3 H Mean Corpuscular Hemoglobin Concent 32.3 Red Cell Distribution Width 13.9 Platelet Count 168 Mean Platelet Volume 10.3 Immature Granulocytes % 0.900 H Neutrophils % Segmented Neutrophils % (Manual) 95 H Band Neutrophils % (Manual) 2 Lymphocytes % Lymphocytes % (Manual) 1 L Monocytes % Monocytes % (Manual) 2 Eosinophils % Basophils % Nucleated Red Blood Cells % 0.0 Immature Granulocytes # 0.110 H Neutrophils # Neutrophils # (Manual) 12.1 H Band Neutrophils # 0.2 Lymphocytes (Manual) 0.1 L Lymphocytes # Monocytes # Monocytes # (Manual) 0.2 L Eosinophils # Basophils # Nucleated Red Blood Cells # Platelet Estimate NORMAL Anisocytosis 1+ Macrocytosis 1+ Sodium Level 136 Potassium Level 5.3 H Chloride Level 98 Carbon Dioxide Level 30 Anion Gap 8 Blood Urea Nitrogen 44 #H Creatinine 7.14 #H Est Glomerular Filtrat Rate mL/min Glucose Level 179 Hemoglobin A1c 5.3 Calcium Level 9.0 Total Bilirubin 0.6 Direct Bilirubin 0.00 Indirect Bilirubin 0.6 Aspartate Amino Transf (AST/SGOT) 25 Alanine Aminotransferase (ALT/SGPT) 30 Alkaline Phosphatase 86 Total Protein 7.1 Albumin 3.9 Globulin 3.20 Albumin/Globulin Ratio 1.21 Triglycerides Level 77 Cholesterol Level 153 LDL Cholesterol, Calculated 93 HDL Cholesterol 45 Cholesterol/HDL Ratio 3.4 Thyroid Stimulating Hormone (TSH) 0.380 L Bedside Glucose 228 H 192 CC: LISA CAMPBELL MD ; Exam/Review of Systems Exam Vitals Vital Signs Date Temp Pulse Resp B/P (MAP) Pulse Ox O2 O2 Flow FiO2 Time Delivery Rate 10/29/18 95 18 95 Nasal 2.0 16:22 Cannula 10/29/18 98.2 149/67 15:15 (94) 10/28/18 50 01:20 Intake and Output 10/28/18 10/28/18 10/29/18 1515:00 23:00 07:00 OutputOutput Total 3400 ml BalanceBalance -3400 ml Results Results 24hrs Laboratory Tests Test 10/29/18 06:01 10/29/18 09:16 10/29/18 10:11 White Blood Count 12.7 #H Red Blood Count 2.88 L Hemoglobin 9.6 L Hematocrit 29.7 L Mean Corpuscular Volume 103.1 H Mean Corpuscular Hemoglobin 33.3 H Mean Corpuscular Hemoglobin Concent 32.3 Red Cell Distribution Width 13.9 Platelet Count 168 Mean Platelet Volume 10.3 Immature Granulocytes % 0.900 H Neutrophils % Segmented Neutrophils % (Manual) 95 H Band Neutrophils % (Manual) 2 Lymphocytes % Lymphocytes % (Manual) 1 L Monocytes % Monocytes % (Manual) 2 Eosinophils % Basophils % Nucleated Red Blood Cells % 0.0 Immature Granulocytes # 0.110 H Neutrophils # Neutrophils # (Manual) 12.1 H Band Neutrophils # 0.2 Lymphocytes (Manual) 0.1 L Lymphocytes # Monocytes # Monocytes # (Manual) 0.2 L Eosinophils # Basophils # Nucleated Red Blood Cells # Platelet Estimate NORMAL Anisocytosis 1+ Macrocytosis 1+ Sodium Level 136 Potassium Level 5.3 H Chloride Level 98 Carbon Dioxide Level 30 Anion Gap 8 Blood Urea Nitrogen 44 #H Creatinine 7.14 #H Est Glomerular Filtrat Rate mL/min Glucose Level 179 Hemoglobin A1c 5.3 Calcium Level 9.0 Total Bilirubin 0.6 Direct Bilirubin 0.00 Indirect Bilirubin 0.6 Aspartate Amino Transf (AST/SGOT) 25 Alanine Aminotransferase (ALT/SGPT) 30 Alkaline Phosphatase 86 Total Protein 7.1 Albumin 3.9 Globulin 3.20 Albumin/Globulin Ratio 1.21 Triglycerides Level 77 Cholesterol Level 153 LDL Cholesterol, Calculated 93 HDL Cholesterol 45 Cholesterol/HDL Ratio 3.4 Thyroid Stimulating Hormone (TSH) 0.380 L Bedside Glucose 228 H 192 Medications Medication Current Medications IV Flush (NS 3 ml) 3 ml PER PROTOCOL IV ; Start 10/28/18 at 05:00 Ondansetron HCl (Zofran Inj) 4 mg Q6H PRN IV NAUSEA/VOMITING; Start 10/28/18 at 05:00 Acetaminophen (Tylenol Tab) 650 mg Q6H PRN PO .PAIN 1-3 OR TEMP; Start 10/28/18 at 05:00 Docusate Sodium (Colace) 100 mg Q12H PRN PO .CONSTIPATION; Start 10/28/18 at 05:00 Bisacodyl (Dulcolax) 5 mg DAILY PRN PO .CONSTIPATION; Start 10/28/18 at 05:00 Heparin Sodium (Porcine) (Heparin (5000 Units/1ml)) 5,000 unit Q8 SC Last administered on 10/29/18 14:22; Admin Dose 5,000 UNIT; Start 10/28/18 at 06:00 Albuterol/ Ipratropium (Duoneb) 3 ml Q4H RESP THERAPY HHN Last administered on 10/29/18 16:17; Admin Dose 3 ML; Start 10/28/18 at 09:00 Sucralfate (Carafate) 1 gm QID PO Last administered on 10/29/18 16:31; Admin Dose 1 GM; Start 10/28/18 at 09:30 Pantoprazole (Protonix Tab) 40 mg BID PO Last administered on 10/29/18 08:10; Admin Dose 40 MG; Start 10/29/18 at 06:00 Hydralazine HCl (Apresoline) 10 mg Q4H PRN IV ELEVATED BLOOD PRESSURE Last administered on 10/29/18 04:14; Admin Dose 10 MG; Start 10/28/18 at 20:00 Methylprednisolone Sodium Succinate (Solu-Medrol) 30 mg BID IV ; Start 10/29/18 at 21:00 Calcium Acetate (Phoslo) 1,334 mg WITH MEALS PO ; Start 10/29/18 at 17:55 Escitalopram Oxalate (Lexapro) 10 mg DAILY PO Last administered on 10/29/18 16:31; Admin Dose 10 MG; Start 10/29/18 at 15:30 Furosemide (Lasix) 80 mg DAILY PO Last administered on 10/29/18 16:31; Admin Dose 80 MG; Start 10/29/18 at 15:30 Gabapentin (Neurontin) 100 mg DAILY PO Last administered on 10/29/18 16:31; Admin Dose 100 MG; Start 10/29/18 at 15:30 Losartan Potassium (Cozaar) 50 mg BID PO ; Start 10/29/18 at 21:00 Metoprolol Succinate (Toprol Xl) 50 mg DAILY PO Last administered on 10/29/18 16:32; Admin Dose 50 MG; Start 10/29/18 at 15:30 Multivit/Ca Carb/ B Cmplx/FA/Prenat ([place]) 1 tab DAILY PO Last administered on 10/29/18at 16:31; Admin Dose 1 TAB; Start 10/29/18 at 15:30 Nifedipine (Procardia Xl) 60 mg BID PO ; Start 10/29/18 at 21:00 CAMILLE JASON NP Oct 29, 2018 17:32
[2018-10-29] MEDS: CALCIUM ACETATE 667 MG CAP PO SCH (17:47)
[2018-10-29 20:00] VITALS: BP 154/71; PULSE 83; RESP 19
[2018-10-29] MEDS: NIFEdipine (XL) 60 MG TAB PO SCH (20:29)
[2018-10-29] MEDS: LOSARTAN 50 MG TAB PO SCH (20:29)
[2018-10-30] VITALS (21 sets, daily range): BP systolic 114–171; BP diastolic 56–73; PULSE 80–89; RESP 16–18
[2018-10-30] MEDS: ALBUTEROL/IPRATROPIUM (NEB) 3 ML AMP HHN SCH ×5 (00:25→20:18)
[2018-10-30] MEDS: HEPARIN 5,000 UNIT/1 ML VIAL SC SCH ×3 (06:37→21:32)
[2018-10-30] MEDS ORDERED: NA POLYST SULFON 15 GM/60 ML BTL PO ONE (09:00)
[2018-10-30] MEDS: CALCIUM ACETATE 667 MG CAP PO SCH ×3 (09:12→17:08)
[2018-10-30] MEDS: METHYLPREDNISOLONE 40 MG INJ IV SCH (09:12)
[2018-10-30] MEDS: FUROSEMIDE 40 MG TAB PO SCH (09:13)
[2018-10-30] MEDS: LOSARTAN 50 MG TAB PO SCH ×2 (09:13→21:29)
[2018-10-30] MEDS: GABAPENTIN 100 MG CAP PO SCH (09:13)
[2018-10-30] MEDS: NIFEdipine (XL) 60 MG TAB PO SCH ×2 (09:13→21:29)
[2018-10-30] MEDS: PANTOPRAZOLE (EC) 40 MG TAB PO SCH ×2 (09:14→21:29)
[2018-10-30] MEDS: ESCITALOPRAM 10 MG TAB PO SCH (09:14)
[2018-10-30] MEDS: SUCRALFATE 1 GM TAB PO SCH ×4 (09:14→21:29)
[2018-10-30] MEDS: MULTIVIT/CA CARB/B CMPLX/FA TAB PO SCH (09:14)
[2018-10-30] MEDS: METOPROLOL (XL) 50 MG TAB PO SCH (09:14)
--- NOTE | 2018-10-30 10:41 | PN ---
Date/Time of Note Date/Time of Note DATE: 10/30/18 TIME: 10:41 Objective Vitals Vital Signs Date Temp Pulse Resp B/P (MAP) Pulse Ox O2 O2 Flow FiO2 Time Delivery Rate 10/30/18 Nasal 2.0 08:00 Cannula 10/30/18 86 18 98 07:57 10/30/18 97.7 139/56 07:22 (83) 10/28/18 50 01:20 Intake and Output 10/29/18 10/29/18 10/30/18 1515:00 23:00 07:00 IntakeIntake Total 750 ml BalanceBalance 750 ml Results Result Diagram: 10/29/18 0601 10/30/18 0555 Medications Medications Current Medications IV Flush (NS 3 ml) 3 ml PER PROTOCOL IV ; Start 10/28/18 at 05:00 Ondansetron HCl (Zofran Inj) 4 mg Q6H PRN IV NAUSEA/VOMITING; Start 10/28/18 at 05:00 Acetaminophen (Tylenol Tab) 650 mg Q6H PRN PO .PAIN 1-3 OR TEMP; Start 10/28/18 at 05:00 Docusate Sodium (Colace) 100 mg Q12H PRN PO .CONSTIPATION; Start 10/28/18 at 05:00 Bisacodyl (Dulcolax) 5 mg DAILY PRN PO .CONSTIPATION; Start 10/28/18 at 05:00 Heparin Sodium (Porcine) (Heparin (5000 Units/1ml)) 5,000 unit Q8 SC Last administered on 10/30/18at 06:37; Admin Dose 5,000 UNIT; Start 10/28/18 at 06:00 Sucralfate (Carafate) 1 gm QID PO Last administered on 10/30/18at 09:14; Admin Dose 1 GM; Start 10/28/18 at 09:30 Pantoprazole (Protonix Tab) 40 mg BID PO Last administered on 10/30/18at 09:14; Admin Dose 40 MG; Start 10/29/18 at 06:00 Hydralazine HCl (Apresoline) 10 mg Q4H PRN IV ELEVATED BLOOD PRESSURE Last administered on 10/29/18at 23:47; Admin Dose 10 MG; Start 10/28/18 at 20:00 Calcium Acetate (Phoslo) 1,334 mg WITH MEALS PO Last administered on 10/30/18 09:12; Admin Dose 1,334 MG; Start 10/29/18 at 17:55 Escitalopram Oxalate (Lexapro) 10 mg DAILY PO Last administered on 10/30/18 09:14; Admin Dose 10 MG; Start 10/29/18 at 15:30 Furosemide (Lasix) 80 mg DAILY PO Last administered on 10/30/18 09:13; Admin Dose 80 MG; Start 10/29/18 at 15:30 Gabapentin (Neurontin) 100 mg DAILY PO Last administered on 10/30/18 09:13; Admin Dose 100 MG; Start 10/29/18 at 15:30 Losartan Potassium (Cozaar) 50 mg BID PO Last administered on 10/30/18 09:13; Admin Dose 50 MG; Start 10/29/18 at 21:00 Metoprolol Succinate (Toprol Xl) 50 mg DAILY PO Last administered on 10/30/18 09:14; Admin Dose 50 MG; Start 10/29/18 at 15:30 Multivit/Ca Carb/ B Cmplx/FA/Prenat (Marilee-Rocío) 1 tab DAILY PO Last administered on 10/30/18 09:14; Admin Dose 1 TAB; Start 10/29/18 at 15:30 Nifedipine (Procardia Xl) 60 mg BID PO Last administered on 10/30/18 09:13; Admin Dose 60 MG; Start 10/29/18 at 21:00 Albuterol/ Ipratropium (Duoneb) 3 ml Q6H RESP THERAPY N ; Start 10/30/18 at 14:00 Budesonide (Pulmicort (Neb)) 0.5 mg BID RESP THERAPY N ; Start 10/30/18 at 20:00 Sodium Chloride 1,000 ml @ 30 mls/hr Q24H IV ; Start 10/30/18 at 11:00; Status UNV Prednisone (Prednisone) 40 mg DAILY PO ; Start 10/31/18 at 09:00; Status UNV VTE Prophylaxis Risk score (from Nsg)>0 risk: 5 SCD applied (from Nsg): Yes Lines/Catheters IV Catheter Type: Thornton in Place: No Assessment/Plan Hospital Course Subjective No acute complaints, breathing has improved Objective Physical exam General: Patient is laying in bed and answers questions appropriately Mentation: Patient is alert and oriented 4, Head: Normocephalic atraumatic Eyes: EOMI, pupils reactive to light Neck: Supple, nontender, midline Respiratory: Clear, to auscultation bilaterally Cardiovascular: regular rate, no obvious murmurs Gastrointestinal: non-tender to palpation, bowel sounds heard. Neurological: Moves all extremities spontaneously Skin: No new skin lesions Assessment/Plan 1. Acute respiratory distress- improving - Improving and wheezing resolved. taper off O2 as tolerated to maintain saturations >90% - fluid overload vs COPD exacerbation - Nebs PRN - CXR noted with mild edema vs inflammation 2. Acute epigastric discomfort - GI consultation appreciated, scheduled for EGD today - continue on PPI BID and Carafate QID 3. Acute COPD exacerbation - will taper steroids, will order orals to begin tomorrow - Nebs on board -Resolving. 4. ESRD on HD - Nephrology consultation appreciated, TTSa schedule for HD 5. Hyperkalemia -Treat as needed -Nephrology recommendations appreciated 6. Anemia of chronic disease - no need for transfusions at this time 7. Disposition -taper off nc o2, EGD planned for today LM ALEXANDRE Oct 30, 2018 10:41
--- NOTE | 2018-10-30 10:48 | CONS ---
Assessment/Plan Assessment/Plan Assessment/Plan (Daily) Chest x-ray showing emphysematous changes with mild pulmonary vascular congestion. Assessment and recommendations; 1. Patient admitted with volume overload from CHF exacerbation with history of renal failure which is dialysis dependent. 2. History of hypertension 3. Likely underlying COPD as well. 4. Hypertension. 5. Neuropathy. 6. Anemia and thrombocytopenia. Continue current supportive care. Patient is responding well to current treatment regimen. Patient possibly may have underlying sleep apnea. May benefit from outpatient pulmonary clinic follow-up and will require a PFT and po ssibly a sleep study. Hemodialysis per supervisor word processing. Obtain follow-up chest x- ray 24 hours. Consultation Date/Type/Reason Admit Date/Time Oct 28, 2018 at 04:11 Date of Consultation: Oct 30, 2018 Type of Consult Pulmonary Pulmonary consult requested for evaluation of hypoxemia. Patient is a pleasant 78-year-old gentleman who came into the hospital with a 2- day history of shortness of breath. Patient denies any wheezing, coughing, sputum production or fever. Upon evaluation a chest x-ray was done which is showing changes consistent with pulmonary edema. Patient has improved significantly since admission. By the time I saw him, patient is laying comfortably in bed and did not appear to be in any distress. Past medical history; 1. End-stage renal disease, patient is compliant with outpatient dialysis. 2. History of hypertension 3. COPD 4. Neuropathy Medications; reviewed Allergies; none Social history; patient does have a history of smoking in the past. Family history noncontributory. Occupational history; patient has had miscellaneous occupations. Review of systems; denies any headache, seizures. Any chest pain, angina, wheezing, sputum production. Any hemoptysis. Shortness of breath has markedly improved. Denies any abdominal pain, nausea vomiting. Any melena hematochezia diarrhea. Any urinary symptoms. Denies any edema. Orthopnea has improved. Denies any weight loss. Patient has good appetite. General exam; elderly male, laying comfortably in bed. Awake and alert. Currently in no distress. Date/Time of Note DATE: 10/30/18 TIME: 10:44 Past Medical History Home Meds Reported Medications Multivit/Ca Carb/B Cmplx/Fa* (Marilee-Rocío*) 1 Tab Tab, 1 TAB PO DAILY, TAB 10/29/18 Escitalopram Oxalate* (Lexapro*) 10 Mg Tablet, 10 MG PO DAILY, #30 TAB 10/29/18 Ranitidine Hcl* (Ranitidine Hcl*) 150 Mg Tablet, 150 MG PO BID, #60 TAB 10/29/18 Nifedipine* (Nifedipine ER*) 60 Mg Tablet.sa, 60 MG PO BID, TAB.SA 10/29/18 Metoprolol Succinate* (Toprol XL*) 50 Mg Tab.er.24h, 50 MG PO DAILY, #30 TAB 10/29/18 Gabapentin* (Neurontin*) 100 Mg Capsule, 100 MG PO DAILY, #90 CAP 10/29/18 Calcium Acetate* (Calcium Acetate*) 667 Mg Capsule, 667 MG PO WITH MEALS, #30 CAP 10/29/18 Furosemide* (Furosemide*) 80 Mg Tablet, 80 MG PO DAILY, #30 TAB 10/29/18 Losartan Potassium* (Losartan Potassium*) 50 Mg Tablet, 50 MG PO BID, TAB 10/29/18 Medications Current Medications IV Flush (NS 3 ml) 3 ml PER PROTOCOL IV ; Start 10/28/18 at 05:00 Ondansetron HCl (Zofran Inj) 4 mg Q6H PRN IV NAUSEA/VOMITING; Start 10/28/18 at 05:00 Acetaminophen (Tylenol Tab) 650 mg Q6H PRN PO .PAIN 1-3 OR TEMP; Start 10/28/18 at 05:00 Docusate Sodium (Colace) 100 mg Q12H PRN PO .CONSTIPATION; Start 10/28/18 at 05:00 Bisacodyl (Dulcolax) 5 mg DAILY PRN PO .CONSTIPATION; Start 10/28/18 at 05:00 Heparin Sodium (Porcine) (Heparin (5000 Units/1ml)) 5,000 unit Q8 SC Last administered on 10/30/18at 06:37; Admin Dose 5,000 UNIT; Start 10/28/18 at 06:00 Sucralfate (Carafate) 1 gm QID PO Last administered on 10/30/18at 09:14; Admin Dose 1 GM; Start 10/28/18 at 09:30 Pantoprazole (Protonix Tab) 40 mg BID PO Last administered on 10/30/18at 09:14; Admin Dose 40 MG; Start 10/29/18 at 06:00 Hydralazine HCl (Apresoline) 10 mg Q4H PRN IV ELEVATED BLOOD PRESSURE Last administered on 10/29/18at 23:47; Admin Dose 10 MG; Start 10/28/18 at 20:00 Calcium Acetate (Phoslo) 1,334 mg WITH MEALS PO Last administered on 10/30/18 09:12; Admin Dose 1,334 MG; Start 10/29/18 at 17:55 Escitalopram Oxalate (Lexapro) 10 mg DAILY PO Last administered on 10/30/18 09:14; Admin Dose 10 MG; Start 10/29/18 at 15:30 Furosemide (Lasix) 80 mg DAILY PO Last administered on 10/30/18 09:13; Admin Dose 80 MG; Start 10/29/18 at 15:30 Gabapentin (Neurontin) 100 mg DAILY PO Last administered on 10/30/18 09:13; Admin Dose 100 MG; Start 10/29/18 at 15:30 Losartan Potassium (Cozaar) 50 mg BID PO Last administered on 10/30/18 09:13; Admin Dose 50 MG; Start 10/29/18 at 21:00 Metoprolol Succinate (Toprol Xl) 50 mg DAILY PO Last administered on 10/30/18 09:14; Admin Dose 50 MG; Start 10/29/18 at 15:30 Multivit/Ca Carb/ B Cmplx/FA/Prenat (Marilee-Rocío) 1 tab DAILY PO Last administered on 10/30/18 09:14; Admin Dose 1 TAB; Start 10/29/18 at 15:30 Nifedipine (Procardia Xl) 60 mg BID PO Last administered on 10/30/18 09:13; Admin Dose 60 MG; Start 10/29/18 at 21:00 Albuterol/ Ipratropium (Duoneb) 3 ml Q6H RESP THERAPY HHN ; Start 10/30/18 at 14:00 Budesonide (Pulmicort (Neb)) 0.5 mg BID RESP THERAPY HHN ; Start 10/30/18 at 20:00 Sodium Chloride 1,000 ml @ 30 mls/hr Q24H IV ; Start 10/30/18 at 11:00; Status UNV Prednisone (Prednisone) 40 mg DAILY PO ; Start 10/31/18 at 09:00; Status UNV Allergies: Coded Allergies: Unknown: Unable to obtain (Unverified , 8/10/19) Social History Smoking Status: Unknown if ever smoked Exam/Review of Systems Exam Vitals Vital Signs Date Temp Pulse Resp B/P (MAP) Pulse Ox O2 O2 Flow FiO2 Time Delivery Rate 10/30/18 Nasal 2.0 08:00 Cannula 10/30/18 86 18 98 07:57 10/30/18 97.7 139/56 07:22 (83) 10/28/18 50 01:20 Intake and Output 10/29/18 10/29/18 10/30/18 1515:00 23:00 07:00 IntakeIntake Total 750 ml BalanceBalance 750 ml Exam H ENT exam; supple neck, positive JVD. No lymphadenopathy. Midline trachea. No thyromegaly. Patient has dentures in place. Pupils are small bilaterally. No neck masses. Chest exam; diminished but clear breath sounds. S1-S2 audible, no murmurs. Regular rhythm. Abdomen exam; soft, protuberant. Nontender. Bowel sounds audible. Extremity exam; no peripheral edema clubbing. Pulses 1+. STACKER exam; no focal deficit. Results Result Diagram: 10/29/18 0601 10/30/18 0555 Results 24hrs Laboratory Tests Test 10/30/18 05:55 Sodium Level 135 Potassium Level 6.3 *H Chloride Level 96 L Carbon Dioxide Level 29 Anion Gap 10 Blood Urea Nitrogen 72 H Creatinine 9.04 H Est Glomerular Filtrat Rate mL/min Glucose Level 175 Calcium Level 8.4 Vitamin B12 Level 622 Folate > 20.0 H Medications Medication Current Medications IV Flush (NS 3 ml) 3 ml PER PROTOCOL IV ; Start 10/28/18 at 05:00 Ondansetron HCl (Zofran Inj) 4 mg Q6H PRN IV NAUSEA/VOMITING; Start 10/28/18 at 05:00 Acetaminophen (Tylenol Tab) 650 mg Q6H PRN PO .PAIN 1-3 OR TEMP; Start 10/28/18 at 05:00 Docusate Sodium (Colace) 100 mg Q12H PRN PO .CONSTIPATION; Start 10/28/18 at 05:00 Bisacodyl (Dulcolax) 5 mg DAILY PRN PO .CONSTIPATION; Start 10/28/18 at 05:00 Heparin Sodium (Porcine) (Heparin (5000 Units/1ml)) 5,000 unit Q8 SC Last administered on 10/30/18 06:37; Admin Dose 5,000 UNIT; Start 10/28/18 at 06:00 Sucralfate (Carafate) 1 gm QID PO Last administered on 10/30/18 09:14; Admin Dose 1 GM; Start 10/28/18 at 09:30 Pantoprazole (Protonix Tab) 40 mg BID PO Last administered on 10/30/18 09:14; Admin Dose 40 MG; Start 10/29/18 at 06:00 Hydralazine HCl (Apresoline) 10 mg Q4H PRN IV ELEVATED BLOOD PRESSURE Last administered on 10/29/18 23:47; Admin Dose 10 MG; Start 10/28/18 at 20:00 Calcium Acetate (Phoslo) 1,334 mg WITH MEALS PO Last administered on 10/30/18 09:12; Admin Dose 1,334 MG; Start 10/29/18 at 17:55 Escitalopram Oxalate (Lexapro) 10 mg DAILY PO Last administered on 10/30/18 09:14; Admin Dose 10 MG; Start 10/29/18 at 15:30 Furosemide (Lasix) 80 mg DAILY PO Last administered on 10/30/18 09:13; Admin Dose 80 MG; Start 10/29/18 at 15:30 Gabapentin (Neurontin) 100 mg DAILY PO Last administered on 10/30/18 09:13; Admin Dose 100 MG; Start 10/29/18 at 15:30 Losartan Potassium (Cozaar) 50 mg BID PO Last administered on 10/30/18 09:13; Admin Dose 50 MG; Start 10/29/18 at 21:00 Metoprolol Succinate (Toprol Xl) 50 mg DAILY PO Last administered on 10/30/18 09:14; Admin Dose 50 MG; Start 10/29/18 at 15:30 Multivit/Ca Carb/ B Cmplx/FA/Prenat (Marilee-Rocío) 1 tab DAILY PO Last administered on 10/30/18 09:14; Admin Dose 1 TAB; Start 10/29/18 at 15:30 Nifedipine (Procardia Xl) 60 mg BID PO Last administered on 10/30/18 09:13; Admin Dose 60 MG; Start 10/29/18 at 21:00 Albuterol/ Ipratropium (Duoneb) 3 ml Q6H RESP THERAPY N ; Start 10/30/18 at 14:00 Budesonide (Pulmicort (Neb)) 0.5 mg BID RESP THERAPY N ; Start 10/30/18 at 20:00 Sodium Chloride 1,000 ml @ 30 mls/hr Q24H IV ; Start 10/30/18 at 11:00; Status UNV Prednisone (Prednisone) 40 mg DAILY PO ; Start 10/31/18 at 09:00; Status UNV AMALIA HAND Oct 30, 2018 10:48
[2018-10-30] MEDS: SOD CHLORIDE 0.45% 1,000 ML IV SCH (11:45)
--- NOTE | 2018-10-30 13:19 | CONS ---
Assessment/Plan Assessment/Plan Assessment/Plan (Daily) ospital Course (Demo Recall) 1. End-stage renal disease.ON hd 2. Hyperkalemia. K 6.3 3. SOB of breath due to pulmonary edema/COPD 4. Hypertension. 5. Anemia of chronic kidney disease. 7. HYPERTHYROIDISM 8. Overweight 9 Epigastric pain pending EGD today Assessment/Plan (Daily) - EGD today - Cw HD, session today due to hyperkalemia -With losartan/nifedipine/Lasix 80/Metoprolol - dc fluids after EGD -Renally dose all meds. Consultation Date/Type/Reason Admit Date/Time Oct 28, 2018 at 04:11 Initial Consult Date 10/30/18 Requesting Provider: ANGELA ATWOOD MD Date/Time of Note DATE: 10/30/18 TIME: 13:13 24 HR Interval Summary Free Text/Dictation hd In progress for hyperkalemia. breathing has improved Exam/Review of Systems Exam Vitals Vital Signs Date Temp Pulse Resp B/P (MAP) Pulse Ox O2 O2 Flow FiO2 Time Delivery Rate 10/30/18 85 13:05 10/30/18 16 114/56 99 Nasal 2.0 12:57 (75) Cannula 10/30/18 97.4 11:10 10/28/18 50 01:20 Intake and Output 10/29/18 10/29/18 10/30/18 1515:00 23:00 07:00 IntakeIntake Total 750 ml BalanceBalance 750 ml Exam No acute distress, no events overnight. Neck: supple, no thyromegaly, no carotid bruits Lungs: clear bilaterally, decreased. CVS: regular rate and rhythm, no murmurs Abdomen: soft, bowel sounds present. Extremities: no edema Neuro: alert and oriented x 3 Skin: no lesions, left arm AV fistula Results Result Diagram: 10/29/18 0601 10/30/18 0555 Results 24hrs Laboratory Tests Test 10/30/18 05:55 Sodium Level 135 Potassium Level 6.3 *H Chloride Level 96 L Carbon Dioxide Level 29 Anion Gap 10 Blood Urea Nitrogen 72 H Creatinine 9.04 H Est Glomerular Filtrat Rate mL/min Glucose Level 175 Calcium Level 8.4 Vitamin B12 Level 622 Folate > 20.0 H Medications Medication Current Medications IV Flush (NS 3 ml) 3 ml PER PROTOCOL IV ; Start 10/28/18 at 05:00 Ondansetron HCl (Zofran Inj) 4 mg Q6H PRN IV NAUSEA/VOMITING; Start 10/28/18 at 05:00 Acetaminophen (Tylenol Tab) 650 mg Q6H PRN PO .PAIN 1-3 OR TEMP; Start 10/28/18 at 05:00 Docusate Sodium (Colace) 100 mg Q12H PRN PO .CONSTIPATION; Start 10/28/18 at 05:00 Bisacodyl (Dulcolax) 5 mg DAILY PRN PO .CONSTIPATION; Start 10/28/18 at 05:00 Heparin Sodium (Porcine) (Heparin (5000 Units/1ml)) 5,000 unit Q8 SC Last administered on 10/30/18 06:37; Admin Dose 5,000 UNIT; Start 10/28/18 at 06:00 Sucralfate (Carafate) 1 gm QID PO Last administered on 10/30/18 09:14; Admin Dose 1 GM; Start 10/28/18 at 09:30 Pantoprazole (Protonix Tab) 40 mg BID PO Last administered on 10/30/18 09:14; Admin Dose 40 MG; Start 10/29/18 at 06:00 Hydralazine HCl (Apresoline) 10 mg Q4H PRN IV ELEVATED BLOOD PRESSURE Last administered on 10/29/18at 23:47; Admin Dose 10 MG; Start 10/28/18 at 20:00 Calcium Acetate (Phoslo) 1,334 mg WITH MEALS PO Last administered on 10/30/18 09:12; Admin Dose 1,334 MG; Start 10/29/18 at 17:55 Escitalopram Oxalate (Lexapro) 10 mg DAILY PO Last administered on 10/30/18 09:14; Admin Dose 10 MG; Start 10/29/18 at 15:30 Furosemide (Lasix) 80 mg DAILY PO Last administered on 10/30/18 09:13; Admin Dose 80 MG; Start 10/29/18 at 15:30 Gabapentin (Neurontin) 100 mg DAILY PO Last administered on 10/30/18 09:13; Admin Dose 100 MG; Start 10/29/18 at 15:30 Losartan Potassium (Cozaar) 50 mg BID PO Last administered on 10/30/18 09:13; Admin Dose 50 MG; Start 10/29/18 at 21:00 Metoprolol Succinate (Toprol Xl) 50 mg DAILY PO Last administered on 10/30/18at 09:14; Admin Dose 50 MG; Start 10/29/18 at 15:30 Multivit/Ca Carb/ B Cmplx/FA/Prenat (Marilee-Rocío) 1 tab DAILY PO Last administered on 10/30/18at 09:14; Admin Dose 1 TAB; Start 10/29/18 at 15:30 Nifedipine (Procardia Xl) 60 mg BID PO Last administered on 10/30/18at 09:13; Admin Dose 60 MG; Start 10/29/18 at 21:00 Albuterol/ Ipratropium (Duoneb) 3 ml Q6H RESP THERAPY N ; Start 10/30/18 at 14:00 Budesonide (Pulmicort (Neb)) 0.5 mg BID RESP THERAPY HHN ; Start 10/30/18 at 20:00 Sodium Chloride 1,000 ml @ 30 mls/hr Q24H IV Last administered on 10/30/18at 11:45; Admin Dose 30 MLS/HR; Start 10/30/18 at 11:00 Prednisone (Prednisone) 40 mg DAILY PO ; Start 10/31/18 at 09:00 SHIRA SHAW MD Oct 30, 2018 13:19
--- NOTE | 2018-10-30 14:01 | PN ---
Date/Time of Note Date/Time of Note DATE: 10/30/18 TIME: 13:52 Assessment/Plan VTE Prophylaxis Risk score (from Nsg)>0 risk: 5 SCD applied (from Ns): Yes Pharmacological prophylaxis: NA/contraindicated Pharm contraindication: renal impairment Lines/Catheters IV Catheter Type (from Nrsg): Urinary Cath still in place: No Assessment/Plan Hospital Course Assessment/Plan Assessment: Epigastric pain Melena Anemia, likely of chronic disease Acute respiratory distress- improved ESRD on hemodialysis Plan: Patient ate this am - will reschedule EGD for tomorrow Resume diet Keep n.p.o. after midnight Continue Protonix BID Continue Carafate Monitor H/H and transfuse for hemoglobin less than 7.5 Patient seen in collaboration with Dr. Campbell Subjective: Pt currently receiving HD No c/o n/v some epigastric pain noted. Monitor H/h. Reschedule EGD for tomorrow PHYSICAL EXAMINATION: GENERAL: Well developed, well nourished, alert & oriented x 3, in no acute distress SKIN: No lesions EYES: Pupils equal reactive to light and accommodation, full extraocular movements, sclera clear, non-icteric, no discharge. EARS/NOSE AND THROAT: Ears normal, nose normal, oropharynx normal, oral memb ranes well hydrated without lesions. NECK: Supple, no masses CHEST: Inspection within normal limits. CARDIOVASCULAR: Heart: Regular rate and rhythm RESPIRATORY: Lungs clear to auscultation GASTROINTESTINAL AND LIVER: Abdomen: Soft, epigastric tenderness, non-distended, no hernias, no masses, no organomegaly, no ascites, no guarding, no rebound tenderness, normoactive bowel sounds. Rectal: Deferred. GENITOURINARY: Male genitalia within normal limits. EXTREMITIES: No cyanosis, clubbing or edema. Result Diagram: 10/29/18 0601 10/30/18 0555 Results 24hrs Laboratory Tests Test 10/30/18 05:55 Sodium Level 135 Potassium Level 6.3 *H Chloride Level 96 L Carbon Dioxide Level 29 Anion Gap 10 Blood Urea Nitrogen 72 H Creatinine 9.04 H Est Glomerular Filtrat Rate mL/min Glucose Level 175 Calcium Level 8.4 Vitamin B12 Level 622 Folate > 20.0 H Exam/Review of Systems Exam Vitals Vital Signs Date Temp Pulse Resp B/P (MAP) Pulse Ox O2 O2 Flow FiO2 Time Delivery Rate 10/30/18 84 13:35 10/30/18 16 114/56 99 Nasal 2.0 12:57 (75) Cannula 10/30/18 97.4 11:10 10/28/18 50 01:20 Intake and Output 10/29/18 10/29/18 10/30/18 1515:00 23:00 07:00 IntakeIntake Total 750 ml BalanceBalance 750 ml Results Results 24hrs Laboratory Tests Test 10/30/18 05:55 Sodium Level 135 Potassium Level 6.3 *H Chloride Level 96 L Carbon Dioxide Level 29 Anion Gap 10 Blood Urea Nitrogen 72 H Creatinine 9.04 H Est Glomerular Filtrat Rate mL/min Glucose Level 175 Calcium Level 8.4 Vitamin B12 Level 622 Folate > 20.0 H Medications Medication Current Medications IV Flush (NS 3 ml) 3 ml PER PROTOCOL IV ; Start 10/28/18 at 05:00 Ondansetron HCl (Zofran Inj) 4 mg Q6H PRN IV NAUSEA/VOMITING; Start 10/28/18 at 05:00 Acetaminophen (Tylenol Tab) 650 mg Q6H PRN PO .PAIN 1-3 OR TEMP; Start 10/28/18 at 05:00 Docusate Sodium (Colace) 100 mg Q12H PRN PO .CONSTIPATION; Start 10/28/18 at 05:00 Bisacodyl (Dulcolax) 5 mg DAILY PRN PO .CONSTIPATION; Start 10/28/18 at 05:00 Heparin Sodium (Porcine) (Heparin (5000 Units/1ml)) 5,000 unit Q8 SC Last administered on 10/30/18at 06:37; Admin Dose 5,000 UNIT; Start 10/28/18 at 06:00 Sucralfate (Carafate) 1 gm QID PO Last administered on 10/30/18at 09:14; Admin Dose 1 GM; Start 10/28/18 at 09:30 Pantoprazole (Protonix Tab) 40 mg BID PO Last administered on 10/30/18at 09:14; Admin Dose 40 MG; Start 10/29/18 at 06:00 Hydralazine HCl (Apresoline) 10 mg Q4H PRN IV ELEVATED BLOOD PRESSURE Last adm inistered on 10/29/18at 23:47; Admin Dose 10 MG; Start 10/28/18 at 20:00 Calcium Acetate (Phoslo) 1,334 mg WITH MEALS PO Last administered on 10/30/18 09:12; Admin Dose 1,334 MG; Start 10/29/18 at 17:55 Escitalopram Oxalate (Lexapro) 10 mg DAILY PO Last administered on 10/30/18 09:14; Admin Dose 10 MG; Start 10/29/18 at 15:30 Furosemide (Lasix) 80 mg DAILY PO Last administered on 10/30/18 09:13; Admin Dose 80 MG; Start 10/29/18 at 15:30 Gabapentin (Neurontin) 100 mg DAILY PO Last administered on 10/30/18 09:13; Admin Dose 100 MG; Start 10/29/18 at 15:30 Losartan Potassium (Cozaar) 50 mg BID PO Last administered on 10/30/18 09:13; Admin Dose 50 MG; Start 10/29/18 at 21:00 Metoprolol Succinate (Toprol Xl) 50 mg DAILY PO Last administered on 10/30/18 09:14; Admin Dose 50 MG; Start 10/29/18 at 15:30 Multivit/Ca Carb/ B Cmplx/FA/Prenat (Marilee-Rocío) 1 tab DAILY PO Last administered on 10/30/18 09:14; Admin Dose 1 TAB; Start 10/29/18 at 15:30 Nifedipine (Procardia Xl) 60 mg BID PO Last administered on 10/30/18 09:13; Admin Dose 60 MG; Start 10/29/18 at 21:00 Albuterol/ Ipratropium (Duoneb) 3 ml Q6H RESP THERAPY HHN ; Start 10/30/18 at 14:00 Budesonide (Pulmicort (Neb)) 0.5 mg BID RESP THERAPY HHN ; Start 10/30/18 at 20:00 Sodium Chloride 1,000 ml @ 30 mls/hr Q24H IV Last administered on 10/30/18 11:45; Admin Dose 30 MLS/HR; Start 10/30/18 at 11:00 Prednisone (Prednisone) 40 mg DAILY PO ; Start 10/31/18 at 09:00 KANDACE PATTEN Oct 30, 2018 14:01
[2018-10-30] MEDS: BUDESONIDE (NEB) 0.5MG/2ML AMP HHN SCH (20:19)
[2018-10-31] VITALS (9 sets, daily range): BP systolic 110–152; BP diastolic 53–69; PULSE 69–87; RESP 18–24
[2018-10-31] MEDS: SOD CHLORIDE 0.45% 1,000 ML IV SCH (00:09)
[2018-10-31] MEDS: ALBUTEROL/IPRATROPIUM (NEB) 3 ML AMP HHN SCH ×4 (02:19→19:54)
[2018-10-31] MEDS: HEPARIN 5,000 UNIT/1 ML VIAL SC SCH ×3 (06:00→21:30)
[2018-10-31] MEDS: CALCIUM ACETATE 667 MG CAP PO SCH ×3 (07:35→17:13)
[2018-10-31] MEDS: BUDESONIDE (NEB) 0.5MG/2ML AMP HHN SCH ×2 (08:10→19:54)
[2018-10-31] MEDS: PANTOPRAZOLE (EC) 40 MG TAB PO SCH ×2 (08:20→20:27)
[2018-10-31] MEDS: SUCRALFATE 1 GM TAB PO SCH ×4 (08:20→20:27)
[2018-10-31] MEDS: MULTIVIT/CA CARB/B CMPLX/FA TAB PO SCH (08:20)
[2018-10-31] MEDS: ESCITALOPRAM 10 MG TAB PO SCH (08:20)
[2018-10-31] MEDS: GABAPENTIN 100 MG CAP PO SCH (08:20)
[2018-10-31] MEDS: METOPROLOL (XL) 50 MG TAB PO SCH (08:21)
[2018-10-31] MEDS: LOSARTAN 50 MG TAB PO SCH ×2 (08:26→20:28)
[2018-10-31] MEDS: NIFEdipine (XL) 60 MG TAB PO SCH ×2 (08:26→20:28)
[2018-10-31] MEDS: FUROSEMIDE 40 MG TAB PO SCH (08:27)
[2018-10-31] MEDS ORDERED: predniSONE 20 MG TAB PO SCH (09:00)
--- NOTE | 2018-10-31 09:50 | CONS ---
Consultation Date/Type/Reason Admit Date/Time Oct 28, 2018 at 04:11 Initial Consult Date 10/30/18 Type of Consult Pulmonary Pulmonary consult requested for evaluation of hypoxemia. Patient is a pleasant 78-year-old gentleman who came into the hospital with a 2- day history of shortness of breath. Patient denies any wheezing, coughing, sputum production or fever. Upon evaluation a chest x-ray was done which is showing changes consistent with pulmonary edema. Patient has improved significantly since admission. By the time I saw him, patient is laying comfortably in bed and did not appear to be in any distress. Past medical history; 1. End-stage renal disease, patient is compliant with outpatient dialysis. 2. History of hypertension 3. COPD 4. Neuropathy Medications; reviewed Allergies; none Social history; patient does have a history of smoking in the past. Family history noncontributory. Occupational history; patient has had miscellaneous occupations. Review of systems; denies any headache, seizures. Any chest pain, angina, wheezing, sputum production. Any hemoptysis. Shortness of breath has markedly improved. Denies any abdominal pain, nausea vomiting. Any melena hematochezia diarrhea. Any urinary symptoms. Denies any edema. Orthopnea has improved. Denies any weight loss. Patient has good appetite. General exam; elderly male, laying comfortably in bed. Awake and alert. Currently in no distress. Requesting Provider: ANGELA ATWOOD MD Date/Time of Note DATE: 10/31/18 TIME: 09:48 24 HR Interval Summary Free Text/Dictation Patient condition is stable. Denies any shortness of breath, chest pain, coughing or wheezing. General exam; elderly male, currently no distress. H ENT exam; supple neck, no JVD. No lymphadenopathy. Midline trachea. No thyromegaly. Pharynx is clear. Patient has dentures in place. Chest exam; diminished but clear breath sounds. S1-S2 audible, no murmurs. Regular rhythm. Abdomen exam; soft, nontender. No organomegaly. Bowel sounds are audible. Extremity exam; no peripheral edema clubbing. SENIOR TAX ANALYST exam; no focal deficit. Chest x-ray was reviewed from today which is showing slight increase in bibasilar vascular markings. Assessment and recommendations; 1. Patient admitted with hypoxemia due to mild pulmonary edema with possibly some element of COPD with interval clinical improvement. 2. Chronic renal failure, dialysis dependent. 3. History of neuropathy. 4. Anemia and thrombocytopenia. 5. Peripheral neuropathy. 6. History of hypertension. 7. Possible underlying sleep apnea. Continue current supportive care. Hemodialysis per emissions testing technician. At this time I would not recommend any antibiotic administration as the chest x-ray and clinical findings do not point towards pneumonia. Patient however would benefit from outpatient PFT and a sleep study. Meanwhile discontinue further steroid dosing. Exam/Review of Systems Exam Vitals Vital Signs Date Temp Pulse Resp B/P (MAP) Pulse Ox O2 O2 Flow FiO2 Time Delivery Rate 10/31/18 2.0 08:00 10/31/18 82 20 95 Nasal 08:00 Cannula 10/31/18 97.5 124/60 07:22 (81) 10/28/18 50 01:20 Intake and Output 10/30/18 10/30/18 10/31/18 1515:00 23:00 07:00 IntakeIntake Total 1230 ml OutputOutput Total 200 ml 2400 ml BalanceBalance -200 ml -1170 ml Results Result Diagram: 10/31/18 0640 10/31/18 0641 Results 24hrs Laboratory Tests Test 10/31/18 06:40 10/31/18 06:41 White Blood Count 8.5 # Red Blood Count 2.75 L Hemoglobin 9.4 L Hematocrit 29.3 L Mean Corpuscular Volume 106.5 H Mean Corpuscular Hemoglobin 34.2 H Mean Corpuscular Hemoglobin Concent 32.1 Red Cell Distribution Width 14.2 Platelet Count 171 Mean Platelet Volume 10.5 H Immature Granulocytes % 0.700 H Neutrophils % 78.2 H Lymphocytes % 12.2 L Monocytes % 8.7 Eosinophils % 0.0 Basophils % 0.2 Nucleated Red Blood Cells % 0.0 Immature Granulocytes # 0.060 H Neutrophils # 6.6 Lymphocytes # 1.0 Monocytes # 0.7 Eosinophils # 0.0 Basophils # 0.0 Nucleated Red Blood Cells # 0.0 Prothrombin Time 13.8 Prothrombin Time Ratio 1.1 INR International Normalized Ratio 1.05 Sodium Level 138 Potassium Level 4.6 Chloride Level 98 Carbon Dioxide Level 32 H Anion Gap 8 Blood Urea Nitrogen 55 H Creatinine 7.38 H Est Glomerular Filtrat Rate mL/min Glucose Level 148 Calcium Level 8.4 Total Bilirubin 0.4 Direct Bilirubin 0.00 Indirect Bilirubin 0.4 Aspartate Amino Transf (AST/SGOT) 22 Alanine Aminotransferase (ALT/SGPT) 28 Alkaline Phosphatase 59 Total Protein 6.0 L Albumin 3.2 L Globulin 2.80 Albumin/Globulin Ratio 1.14 Medications Medication Current Medications IV Flush (NS 3 ml) 3 ml PER PROTOCOL IV ; Start 10/28/18 at 05:00 Ondansetron HCl (Zofran Inj) 4 mg Q6H PRN IV NAUSEA/VOMITING; Start 10/28/18 at 05:00 Acetaminophen (Tylenol Tab) 650 mg Q6H PRN PO .PAIN 1-3 OR TEMP; Start 10/28/18 at 05:00 Docusate Sodium (Colace) 100 mg Q12H PRN PO .CONSTIPATION; Start 10/28/18 at 05 :00 Bisacodyl (Dulcolax) 5 mg DAILY PRN PO .CONSTIPATION; Start 10/28/18 at 05:00 Heparin Sodium (Porcine) (Heparin (5000 Units/1ml)) 5,000 unit Q8 SC Last administered on 10/30/18at 06:37; Admin Dose 5,000 UNIT; Start 10/28/18 at 06:00 Sucralfate (Carafate) 1 gm QID PO Last administered on 10/30/18 21:29; Admin Dose 1 GM; Start 10/28/18 at 09:30 Pantoprazole (Protonix Tab) 40 mg BID PO Last administered on 10/30/18 21:29; Admin Dose 40 MG; Start 10/29/18 at 06:00 Hydralazine HCl (Apresoline) 10 mg Q4H PRN IV ELEVATED BLOOD PRESSURE Last administered on 10/29/18 23:47; Admin Dose 10 MG; Start 10/28/18 at 20:00 Calcium Acetate (Phoslo) 1,334 mg WITH MEALS PO Last administered on 10/30/18 17:08; Admin Dose 1,334 MG; Start 10/29/18 at 17:55 Escitalopram Oxalate (Lexapro) 10 mg DAILY PO Last administered on 10/30/18 09:14; Admin Dose 10 MG; Start 10/29/18 at 15:30 Furosemide (Lasix) 80 mg DAILY PO Last administered on 10/31/18 08:27; Admin Dose 80 MG; Start 10/29/18 at 15:30 Gabapentin (Neurontin) 100 mg DAILY PO Last administered on 10/30/18 09:13; Admin Dose 100 MG; Start 10/29/18 at 15:30 Losartan Potassium (Cozaar) 50 mg BID PO Last administered on 10/31/18 08:26; Admin Dose 50 MG; Start 10/29/18 at 21:00 Metoprolol Succinate (Toprol Xl) 50 mg DAILY PO Last administered on 10/30/18 09:14; Admin Dose 50 MG; Start 10/29/18 at 15:30 Multivit/Ca Carb/ B Cmplx/FA/Prenat (Marilee-Rocío) 1 tab DAILY PO Last administered on 10/30/18 09:14; Admin Dose 1 TAB; Start 10/29/18 at 15:30 Nifedipine (Procardia Xl) 60 mg BID PO Last administered on 10/31/18 08:26; Admin Dose 60 MG; Start 10/29/18 at 21:00 Albuterol/ Ipratropium (Duoneb) 3 ml Q6H RESP THERAPY HHN Last administered on 10/31/18 08:34; Admin Dose 3 ML; Start 10/30/18 at 14:00 Budesonide (Pulmicort (Neb)) 0.5 mg BID RESP THERAPY HHN Last administered on 10/31/18 08:10; Admin Dose 0.5 MG; Start 10/30/18 at 20:00 Sodium Chloride 1,000 ml @ 30 mls/hr Q24H IV Last administered on 10/31/18 00:09; Admin Dose 30 MLS/HR; Start 10/30/18 at 11:00 Prednisone (Prednisone) 40 mg DAILY PO ; Start 10/31/18 at 09:00 AMALIA HAND Oct 31, 2018 09:50
--- NOTE | 2018-10-31 11:57 | CONS ---
Assessment/Plan Assessment/Plan Assessment/Plan (Daily) 1. End-stage renal disease.ON hd 2. Hyperkalemia. K 6.3 3. SOB of breath due to pulmonary edema/COPD 4. Hypertension. 5. Anemia of chronic kidney disease. 7. HYPERTHYROIDISM 8. Overweight 9 Epigastric pain pending EGD today Assessment/Plan (Daily) - sp HD yesterday due to hyperkalemia, will not do today as going for proedure - will do HD tmw for short duration as well to be on schedule as will be dc tmw as last hd was yesterday, HD IS TTS -With losartan/nifedipine/Lasix 80/Metoprolol -Renally dose all meds. Consultation Date/Type/Reason Admit Date/Time Oct 28, 2018 at 04:11 Initial Consult Date 10/30/18 Requesting Provider: ANGELA ATWOOD MD Date/Time of Note DATE: 10/31/18 TIME: 11:54 24 HR Interval Summary Free Text/Dictation FEELS WELL sp HD yesterday Exam/Review of Systems Exam Vitals Vital Signs Date Temp Pulse Resp B/P (MAP) Pulse Ox O2 O2 Flow FiO2 Time Delivery Rate 10/31/18 98.1 74 18 121/60 96 Nasal 11:11 (80) Cannula 10/31/18 2.0 08:00 10/28/18 50 01:20 Intake and Output 10/30/18 10/30/18 10/31/18 1515:00 23:00 07:00 IntakeIntake Total 1230 ml OutputOutput Total 200 ml 2400 ml BalanceBalance -200 ml -1170 ml Exam No acute distress, no events overnight. Neck: supple, no thyromegaly, no carotid bruits Lungs: clear bilaterally, decreased. CVS: regular rate and rhythm, no murmurs Abdomen: soft, bowel sounds present. Extremities: no edema Neuro: alert and oriented x 3 Skin: no lesions, left arm AV fistula Results Result Diagram: 10/31/18 0640 10/31/18 0641 Results 24hrs Laboratory Tests Test 10/31/18 06:40 10/31/18 06:41 White Blood Count 8.5 # Red Blood Count 2.75 L Hemoglobin 9.4 L Hematocrit 29.3 L Mean Corpuscular Volume 106.5 H Mean Corpuscular Hemoglobin 34.2 H Mean Corpuscular Hemoglobin Concent 32.1 Red Cell Distribution Width 14.2 Platelet Count 171 Mean Platelet Volume 10.5 H Immature Granulocytes % 0.700 H Neutrophils % 78.2 H Lymphocytes % 12.2 L Monocytes % 8.7 Eosinophils % 0.0 Basophils % 0.2 Nucleated Red Blood Cells % 0.0 Immature Granulocytes # 0.060 H Neutrophils # 6.6 Lymphocytes # 1.0 Monocytes # 0.7 Eosinophils # 0.0 Basophils # 0.0 Nucleated Red Blood Cells # 0.0 Prothrombin Time 13.8 Prothrombin Time Ratio 1.1 INR International Normalized Ratio 1.05 Sodium Level 138 Potassium Level 4.6 Chloride Level 98 Carbon Dioxide Level 32 H Anion Gap 8 Blood Urea Nitrogen 55 H Creatinine 7.38 H Est Glomerular Filtrat Rate mL/min Glucose Level 148 Calcium Level 8.4 Total Bilirubin 0.4 Direct Bilirubin 0.00 Indirect Bilirubin 0.4 Aspartate Amino Transf (AST/SGOT) 22 Alanine Aminotransferase (ALT/SGPT) 28 Alkaline Phosphatase 59 Total Protein 6.0 L Albumin 3.2 L Globulin 2.80 Albumin/Globulin Ratio 1.14 Medications Medication Current Medications IV Flush (NS 3 ml) 3 ml PER PROTOCOL IV ; Start 10/28/18 at 05:00 Ondansetron HCl (Zofran Inj) 4 mg Q6H PRN IV NAUSEA/VOMITING; Start 10/28/18 at 05:00 Acetaminophen (Tylenol Tab) 650 mg Q6H PRN PO .PAIN 1-3 OR TEMP; Start 10/28/18 at 05:00 Docusate Sodium (Colace) 100 mg Q12H PRN PO .CONSTIPATION; Start 10/28/18 at 05:00 Bisacodyl (Dulcolax) 5 mg DAILY PRN PO .CONSTIPATION; Start 10/28/18 at 05:00 Heparin Sodium (Porcine) (Heparin (5000 Units/1ml)) 5,000 unit Q8 SC Last administered on 10/30/18at 06:37; Admin Dose 5,000 UNIT; Start 10/28/18 at 06:00 Sucralfate (Carafate) 1 gm QID PO Last administered on 10/30/18at 21:29; Admin Dose 1 GM; Start 10/28/18 at 09:30 Pantoprazole (Protonix Tab) 40 mg BID PO Last administered on 10/30/18at 21:29; Admin Dose 40 MG; Start 10/29/18 at 06:00 Hydralazine HCl (Apresoline) 10 mg Q4H PRN IV ELEVATED BLOOD PRESSURE Last administered on 10/29/18 23:47; Admin Dose 10 MG; Start 10/28/18 at 20:00 Calcium Acetate (Phoslo) 1,334 mg WITH MEALS PO Last administered on 10/30/18 17:08; Admin Dose 1,334 MG; Start 10/29/18 at 17:55 Escitalopram Oxalate (Lexapro) 10 mg DAILY PO Last administered on 10/30/18 09:14; Admin Dose 10 MG; Start 10/29/18 at 15:30 Furosemide (Lasix) 80 mg DAILY PO Last administered on 10/31/18 08:27; Admin Dose 80 MG; Start 10/29/18 at 15:30 Gabapentin (Neurontin) 100 mg DAILY PO Last administered on 10/30/18 09:13; Admin Dose 100 MG; Start 10/29/18 at 15:30 Losartan Potassium (Cozaar) 50 mg BID PO Last administered on 10/31/18 08:26; Admin Dose 50 MG; Start 10/29/18 at 21:00 Metoprolol Succinate (Toprol Xl) 50 mg DAILY PO Last administered on 10/30/18 09:14; Admin Dose 50 MG; Start 10/29/18 at 15:30 Multivit/Ca Carb/ B Cmplx/FA/Prenat (Marilee-Rocío) 1 tab DAILY PO Last admini stered on 10/30/18 09:14; Admin Dose 1 TAB; Start 10/29/18 at 15:30 Nifedipine (Procardia Xl) 60 mg BID PO Last administered on 10/31/18 08:26; Admin Dose 60 MG; Start 10/29/18 at 21:00 Albuterol/ Ipratropium (Duoneb) 3 ml Q6H RESP THERAPY HHN Last administered on 10/31/18 08:34; Admin Dose 3 ML; Start 10/30/18 at 14:00 Budesonide (Pulmicort (Neb)) 0.5 mg BID RESP THERAPY HHN Last administered on 10/31/18 08:10; Admin Dose 0.5 MG; Start 10/30/18 at 20:00 Sodium Chloride 1,000 ml @ 30 mls/hr Q24H IV Last administered on 10/31/18at 00:09; Admin Dose 30 MLS/HR; Start 10/30/18 at 11:00 Levofloxacin/ Dextrose 150 ml @ 100 mls/hr Q48H IVPB ; Start 10/31/18 at 12:00 SHIRA SHAW MD Oct 31, 2018 11:57
[2018-10-31] MEDS ORDERED: LEVOFLOXACIN 750MG/D5W (PMX) 150 ML IVPB SCH (12:00)
--- NOTE | 2018-10-31 14:17 | PN ---
Date/Time of Note Date/Time of Note DATE: 10/31/18 TIME: 14:12 Objective Vitals Vital Signs Date Temp Pulse Resp B/P (MAP) Pulse Ox O2 O2 Flow FiO2 Time Delivery Rate 10/31/18 98.1 74 18 121/60 96 Nasal 11:11 (80) Cannula 10/31/18 2.0 08:00 10/28/18 50 01:20 Intake and Output 10/30/18 10/30/18 10/31/18 1515:00 23:00 07:00 IntakeIntake Total 1230 ml OutputOutput Total 200 ml 2400 ml BalanceBalance -200 ml -1170 ml Results Result Diagram: 10/31/18 0640 10/31/18 0641 Medications Medications Current Medications IV Flush (NS 3 ml) 3 ml PER PROTOCOL IV ; Start 10/28/18 at 05:00 Ondansetron HCl (Zofran Inj) 4 mg Q6H PRN IV NAUSEA/VOMITING; Start 10/28/18 at 05:00 Acetaminophen (Tylenol Tab) 650 mg Q6H PRN PO .PAIN 1-3 OR TEMP; Start 10/28/18 at 05:00 Docusate Sodium (Colace) 100 mg Q12H PRN PO .CONSTIPATION; Start 10/28/18 at 05:00 Bisacodyl (Dulcolax) 5 mg DAILY PRN PO .CONSTIPATION; Start 10/28/18 at 05:00 Heparin Sodium (Porcine) (Heparin (5000 Units/1ml)) 5,000 unit Q8 SC Last administered on 10/30/18at 06:37; Admin Dose 5,000 UNIT; Start 10/28/18 at 06:00 Sucralfate (Carafate) 1 gm QID PO Last administered on 10/30/18at 21:29; Admin Dose 1 GM; Start 10/28/18 at 09:30 Pantoprazole (Protonix Tab) 40 mg BID PO Last administered on 10/30/18at 21:29; Admin Dose 40 MG; Start 10/29/18 at 06:00 Hydralazine HCl (Apresoline) 10 mg Q4H PRN IV ELEVATED BLOOD PRESSURE Last ad ministered on 10/29/18at 23:47; Admin Dose 10 MG; Start 10/28/18 at 20:00 Calcium Acetate (Phoslo) 1,334 mg WITH MEALS PO Last administered on 10/30/18 17:08; Admin Dose 1,334 MG; Start 10/29/18 at 17:55 Escitalopram Oxalate (Lexapro) 10 mg DAILY PO Last administered on 10/30/18 09:14; Admin Dose 10 MG; Start 10/29/18 at 15:30 Furosemide (Lasix) 80 mg DAILY PO Last administered on 10/31/18 08:27; Admin Dose 80 MG; Start 10/29/18 at 15:30 Gabapentin (Neurontin) 100 mg DAILY PO Last administered on 10/30/18 09:13; Admin Dose 100 MG; Start 10/29/18 at 15:30 Losartan Potassium (Cozaar) 50 mg BID PO Last administered on 10/31/18 08:26; Admin Dose 50 MG; Start 10/29/18 at 21:00 Metoprolol Succinate (Toprol Xl) 50 mg DAILY PO Last administered on 10/30/18 09:14; Admin Dose 50 MG; Start 10/29/18 at 15:30 Multivit/Ca Carb/ B Cmplx/FA/Prenat (Marilee-Rocío) 1 tab DAILY PO Last administere d on 10/30/18 09:14; Admin Dose 1 TAB; Start 10/29/18 at 15:30 Nifedipine (Procardia Xl) 60 mg BID PO Last administered on 10/31/18 08:26; Admin Dose 60 MG; Start 10/29/18 at 21:00 Albuterol/ Ipratropium (Duoneb) 3 ml Q6H RESP THERAPY HHN Last administered on 10/31/18 08:34; Admin Dose 3 ML; Start 10/30/18 at 14:00 Budesonide (Pulmicort (Neb)) 0.5 mg BID RESP THERAPY HHN Last administered on 10/31/18 08:10; Admin Dose 0.5 MG; Start 10/30/18 at 20:00 Sodium Chloride 1,000 ml @ 30 mls/hr Q24H IV Last administered on 10/31/18 00:09; Admin Dose 30 MLS/HR; Start 10/30/18 at 11:00 Levofloxacin/ Dextrose 150 ml @ 100 mls/hr Q48H IVPB Last administered on 8/13/19at 12:29; Admin Dose 100 MLS/HR; Start 10/31/18 at 12:00 VTE Prophylaxis Risk score (from Nsg)>0 risk: 5 SCD applied (from Nsg): Yes Lines/Catheters IV Catheter Type: Thornton in Place: No Assessment/Plan Hospital Course Subjective No acute complaints, breathing has improved Objective Physical exam General: Patient is laying in bed and answers questions appropriately Mentation: Patient is alert and oriented 4, Head: Normocephalic atraumatic Eyes: EOMI, pupils reactive to light Neck: Supple, nontender, midline Respiratory: Clear, to auscultation bilaterally Cardiovascular: regular rate, no obvious murmurs Gastrointestinal: non-tender to palpation, bowel sounds heard. Neurological: Moves all extremities spontaneously Skin: No new skin lesions Assessment/Plan 1. Acute respiratory distress- improving - Improving and wheezing resolved. taper off O2 as tolerated to maintain saturations >90%, however patient on 2 to 3 L at home at baseline. - fluid overload vs COPD exacerbation - Nebs PRN - CXR noted with mild edema vs inflammation and questionable infiltrate Questionable infiltrate -After speaking with nephrology also agrees, chest x-ray should show improvement if edema as patient has been eating aggressively diuresed, will attempt empiric antibiotic. 2. Acute epigastric discomfort - GI consultation appreciated, scheduled for EGD today - continue on PPI BID and Carafate QID 3. Acute COPD exacerbation -Steroid taper - Nebs on board -Resolving. 4. ESRD on HD - Nephrology consultation appreciated, TTSa schedule for HD 5. Hyperkalemia -Treat as needed -Nephrology recommendations appreciated 6. Anemia of chronic disease - no need for transfusions at this time 7. Disposition -EGD today, if no significant abnormality, plan discharge tomorrow. LM ALEXANDRE Oct 31, 2018 14:17
--- NOTE | 2018-10-31 17:30 | PREAC ---
Date/Time of Note Date/Time of Note DATE: 10/31/18 TIME: 17:28 Anesthesia Eval and Record Evaluation Time Pre-Procedure Interview DATE: 10/31/18 TIME: 17:28 Age 78 Sex male NPO: 8 hrs Preoperative diagnosis EPIGASTRIC PAIN Planned procedure EGD Past Medical History Past Medical History: Includes Pulm: COPD Renal: ESRD on dialysis Heme: Anemia Surgery & Anesthesia Issues No known issue Meds Anticoagulation: No Beta Felipa within 24 hr: No Reason Beta Felipa not given: Pt. not on B-Felipa Reported Medications Multivit/Ca Carb/B Cmplx/Fa* (Marilee-Rocío*) 1 Tab Tab, 1 TAB PO DAILY, TAB 10/29/18 Escitalopram Oxalate* (Lexapro*) 10 Mg Tablet, 10 MG PO DAILY, #30 TAB 10/29/18 Ranitidine Hcl* (Ranitidine Hcl*) 150 Mg Tablet, 150 MG PO BID, #60 TAB 10/29/18 Nifedipine* (Nifedipine ER*) 60 Mg Tablet.sa, 60 MG PO BID, TAB.SA 10/29/18 Metoprolol Succinate* (Toprol XL*) 50 Mg Tab.er.24h, 50 MG PO DAILY, #30 TAB 10/29/18 Gabapentin* (Neurontin*) 100 Mg Capsule, 100 MG PO DAILY, #90 CAP 10/29/18 Calcium Acetate* (Calcium Acetate*) 667 Mg Capsule, 667 MG PO WITH MEALS, #30 CAP 10/29/18 Furosemide* (Furosemide*) 80 Mg Tablet, 80 MG PO DAILY, #30 TAB 10/29/18 Losartan Potassium* (Losartan Potassium*) 50 Mg Tablet, 50 MG PO BID, TAB 10/29/18 Current Medications IV Flush (NS 3 ml) 3 ml PER PROTOCOL IV ; Start 10/28/18 at 05:00 Ondansetron HCl (Zofran Inj) 4 mg Q6H PRN IV NAUSEA/VOMITING; Start 10/28/18 at 05:00 Acetaminophen (Tylenol Tab) 650 mg Q6H PRN PO .PAIN 1-3 OR TEMP; Start 10/28/18 at 05:00 Docusate Sodium (Colace) 100 mg Q12H PRN PO .CONSTIPATION; Start 10/28/18 at 05:00 Bisacodyl (Dulcolax) 5 mg DAILY PRN PO .CONSTIPATION; Start 10/28/18 at 05:00 Heparin Sodium (Porcine) (Heparin (5000 Units/1ml)) 5,000 unit Q8 SC Last administered on 10/30/18 06:37; Admin Dose 5,000 UNIT; Start 10/28/18 at 06:00 Sucralfate (Carafate) 1 gm QID PO Last administered on 10/30/18 21:29; Admin Dose 1 GM; Start 10/28/18 at 09:30 Pantoprazole (Protonix Tab) 40 mg BID PO Last administered on 10/30/18 21:29; Admin Dose 40 MG; Start 10/29/18 at 06:00 Hydralazine HCl (Apresoline) 10 mg Q4H PRN IV ELEVATED BLOOD PRESSURE Last administered on 10/29/18 23:47; Admin Dose 10 MG; Start 10/28/18 at 20:00 Calcium Acetate (Phoslo) 1,334 mg WITH MEALS PO Last administered on 10/30/18 17:08; Admin Dose 1,334 MG; Start 10/29/18 at 17:55 Escitalopram Oxalate (Lexapro) 10 mg DAILY PO Last administered on 10/30/18 09:14; Admin Dose 10 MG; Start 10/29/18 at 15:30 Furosemide (Lasix) 80 mg DAILY PO Last administered on 10/31/18 08:27; Admin Dose 80 MG; Start 10/29/18 at 15:30 Gabapentin (Neurontin) 100 mg DAILY PO Last administered on 10/30/18 09:13; Admin Dose 100 MG; Start 10/29/18 at 15:30 Losartan Potassium (Cozaar) 50 mg BID PO Last administered on 10/31/18 08:26; Admin Dose 50 MG; Start 10/29/18 at 21:00 Metoprolol Succinate (Toprol Xl) 50 mg DAILY PO Last administered on 10/30/18 09:14; Admin Dose 50 MG; Start 10/29/18 at 15:30 Multivit/Ca Carb/ B Cmplx/FA/Prenat (Marilee-Rocío) 1 tab DAILY PO Last administered on 10/30/18 09:14; Admin Dose 1 TAB; Start 10/29/18 at 15:30 Nifedipine (Procardia Xl) 60 mg BID PO Last administered on 8/13/19at 08:26; Admin Dose 60 MG; Start 10/29/18 at 21:00 Albuterol/ Ipratropium (Duoneb) 3 ml Q6H RESP THERAPY HHN Last administered on 10/31/18at 14:45; Admin Dose 3 ML; Start 10/30/18 at 14:00 Budesonide (Pulmicort (Neb)) 0.5 mg BID RESP THERAPY HHN Last administered on 10/31/18at 08:10; Admin Dose 0.5 MG; Start 10/30/18 at 20:00 Sodium Chloride 1,000 ml @ 30 mls/hr Q24H IV Last administered on 10/31/18at 00:09; Admin Dose 30 MLS/HR; Start 10/30/18 at 11:00 Levofloxacin (Levaquin) 500 mg Q48H PO ; Start 11/01/18 at 14:00 Meds reviewed: Yes Allergies Coded Allergies: Unknown: Unable to obtain (Unverified , 10/28/18) Allergies Reviewed: Yes Labs/Studies Labs Reviewed: Reviewed by anesthesiologist Result Diagram: 10/31/18 0640 10/31/18 0641 Laboratory Tests 10/31/18 06:40 10/31/18 06:41 test: N/A Pre-procedure Exam Last vitals Vital Signs Date Temp Pulse Resp B/P (MAP) Pulse Ox O2 O2 Flow FiO2 Time Delivery Rate 10/31/18 97.9 78 18 125/60 96 Room Air 15:45 (81) 10/31/18 2.0 14:46 10/28/18 50 01:20 Airway: Adequate mouth opening, Adequate thyromental dist Mallampati: Mallampati II Teeth: Normal Lung: Normal Heart: Normal ASA Physical Status ASA physical status: 3 Emergency: None Planned Anesthetic General/MAC: MAC Planned Pain Management Parenteral pain med Pre-operative Attestations Prior to commencing anesthesia and surgery, the patient was re-evaluated, there was verification of: *The patient's identity *The results of appropriate recent lab work and preoperative vital signs *The above evaluation not changing prior to induction *Anesthetic plan, risk benefits, alternative and complications discussed with patient/family; questions answered; patient/family understands, accepts and wishes to proceed. DIANN MURO Oct 31, 2018 17:30
--- NOTE | 2018-10-31 18:44 | PAC ---
Date/Time of Note Date/Time of Note DATE: 10/31/18 TIME: 18:43 Post-Anesthesia Notes Post-Anesthesia Note Last documented vital signs Vital Signs Date Temp Pulse Resp B/P (MAP) Pulse Ox O2 O2 Flow FiO2 Time Delivery Rate 10/31/18 Non 10 18:41 Rebreather 10/31/18 97.8 76 24 152/67 99 17:50 (95) 10/28/18 50 01:20 Activity: WNL Respiratory function: WNL Cardiovascular function: WNL Mental status: Baseline Pain reasonably controlled: Yes Hydration appropriate: Yes Nausea/Vomiting absent: Yes DIANN MURO Oct 31, 2018 18:44
[2018-11-01] VITALS (14 sets, daily range): BP systolic 115–160; BP diastolic 41–87; PULSE 72–83; RESP 16–20
[2018-11-01] MEDS: ALBUTEROL/IPRATROPIUM (NEB) 3 ML AMP HHN SCH ×4 (01:30→19:52)
[2018-11-01] MEDS: HEPARIN 5,000 UNIT/1 ML VIAL SC SCH ×2 (06:10→13:16)
[2018-11-01] MEDS: PANTOPRAZOLE (EC) 40 MG TAB PO SCH (08:10)
[2018-11-01] MEDS: GABAPENTIN 100 MG CAP PO SCH (08:10)
[2018-11-01] MEDS: SUCRALFATE 1 GM TAB PO SCH ×4 (08:10→20:54)
[2018-11-01] MEDS: ESCITALOPRAM 10 MG TAB PO SCH (08:11)
[2018-11-01] MEDS: FUROSEMIDE 40 MG TAB PO SCH (08:11)
[2018-11-01] MEDS: MULTIVIT/CA CARB/B CMPLX/FA TAB PO SCH (08:11)
[2018-11-01] MEDS: CALCIUM ACETATE 667 MG CAP PO SCH ×3 (08:11→20:52)
[2018-11-01] MEDS: LOSARTAN 50 MG TAB PO SCH ×2 (09:00→20:51)
[2018-11-01] MEDS: METOPROLOL (XL) 50 MG TAB PO SCH (09:00)
[2018-11-01] MEDS: NIFEdipine (XL) 60 MG TAB PO SCH ×2 (09:00→20:51)
[2018-11-01] MEDS: BUDESONIDE (NEB) 0.5MG/2ML AMP HHN SCH ×2 (09:36→19:52)
--- NOTE | 2018-11-01 10:29 | CONS ---
Consultation Date/Type/Reason Admit Date/Time Oct 28, 2018 at 04:11 Initial Consult Date 10/30/18 Type of Consult Pulmonary Pulmonary consult requested for evaluation of hypoxemia. Patient is a pleasant 78-year-old gentleman who came into the hospital with a 2- day history of shortness of breath. Patient denies any wheezing, coughing, sputum production or fever. Upon evaluation a chest x-ray was done which is showing changes consistent with pulmonary edema. Patient has improved significantly since admission. By the time I saw him, patient is laying comfortably in bed and did not appear to be in any distress. Past medical history; 1. End-stage renal disease, patient is compliant with outpatient dialysis. 2. History of hypertension 3. COPD 4. Neuropathy Medications; reviewed Allergies; none Social history; patient does have a history of smoking in the past. Family history noncontributory. Occupational history; patient has had miscellaneous occupations. Review of systems; denies any headache, seizures. Any chest pain, angina, wheezing, sputum production. Any hemoptysis. Shortness of breath has markedly improved. Denies any abdominal pain, nausea vomiting. Any melena hematochezia diarrhea. Any urinary symptoms. Denies any edema. Orthopnea has improved. Denies any weight loss. Patient has good appetite. General exam; elderly male, laying comfortably in bed. Awake and alert. Currently in no distress. Requesting Provider: ANGELA ATWOOD MD Date/Time of Note DATE: 11/01/18 TIME: 10:26 24 HR Interval Summary Free Text/Dictation Patient's condition is stable. Remains awake and alert. Denies any shortness of breath, coughing, wheezing. General exam; elderly male, currently no distress. H ENT exam; supple neck, no JVD. No lymphadenopathy. Midline trachea. No thyromegaly. No neck masses. Chest exam; diminished but clear breath sounds. S1-S2 audible, no murmurs. Regular rhythm. Abdomen exam; soft, nontender. No organomegaly. Bowel sounds are audible. Extremity exam; no peripheral edema clubbing. DANCE TEACHER exam; no focal deficit. Assessment and recommendations; 1. Patient admitted with hypoxemia due to CHF exacerbation as well as some element of bronchopneumonia with significant interval clinical improvement. 2. Chest x-ray likely showing chronic findings. 3. History of end-stage renal disease, on hemodialysis. 4. History of hypertension. 5. COPD. 6. Likely underlying sleep apnea. 7. Mild anemia and thrombocytopenia. 8. Peripheral neuropathy. Continue current supportive care. Consider discharge. Patient will need to follow-up in the pulmonary clinic for a PFT as well as a sleep study. Kindly schedule appointment to see Dr. Mohr in the office. Exam/Review of Systems Exam Vitals Vital Signs Date Temp Pulse Resp B/P (MAP) Pulse Ox O2 O2 Flow FiO2 Time Delivery Rate 11/01/18 98.0 72 20 115/87 98 07:12 (96) 11/01/18 2.0 01:30 11/01/18 Nasal 01:30 Cannula Intake and Output 10/31/18 10/31/18 11/01/18 1515:00 23:00 07:00 IntakeIntake Total 450 ml BalanceBalance 450 ml Results Result Diagram: 11/01/18 0647 11/01/18 0647 Results 24hrs Laboratory Tests Test 11/01/18 06:47 White Blood Count 6.8 Red Blood Count 2.76 L Hemoglobin 9.3 L Hematocrit 29.5 L Mean Corpuscular Volume 106.9 H Mean Corpuscular Hemoglobin 33.7 H Mean Corpuscular Hemoglobin Concent 31.5 L Red Cell Distribution Width 14.5 Platelet Count 159 Mean Platelet Volume 10.3 Immature Granulocytes % 1.300 H Neutrophils % 74.1 Lymphocytes % 14.4 L Monocytes % 9.9 Eosinophils % 0.0 Basophils % 0.3 Nucleated Red Blood Cells % 0.0 Immature Granulocytes # 0.090 H Neutrophils # 5.0 Lymphocytes # 1.0 Monocytes # 0.7 Eosinophils # 0.0 Basophils # 0.0 Nucleated Red Blood Cells # 0.0 Sodium Level 139 Potassium Level 5.4 H Chloride Level 99 Carbon Dioxide Level 29 Anion Gap 11 Blood Urea Nitrogen 66 H Creatinine 10.08 #H Est Glomerular Filtrat Rate mL/min Glucose Level 102 # Calcium Level 8.5 Phosphorus Level 7.6 H Magnesium Level 1.9 Medications Medication Current Medications IV Flush (NS 3 ml) 3 ml PER PROTOCOL IV ; Start 10/28/18 at 05:00 Ondansetron HCl (Zofran Inj) 4 mg Q6H PRN IV NAUSEA/VOMITING; Start 10/28/18 at 05:00 Acetaminophen (Tylenol Tab) 650 mg Q6H PRN PO .PAIN 1-3 OR TEMP; Start 10/28/18 at 05:00 Docusate Sodium (Colace) 100 mg Q12H PRN PO .CONSTIPATION; Start 10/28/18 at 05:00 Bisacodyl (Dulcolax) 5 mg DAILY PRN PO .CONSTIPATION; Start 10/28/18 at 05:00 Heparin Sodium (Porcine) (Heparin (5000 Units/1ml)) 5,000 unit Q8 SC Last administered on 11/01/18 06:10; Admin Dose 5,000 UNIT; Start 10/28/18 at 06:00 Sucralfate (Carafate) 1 gm QID PO Last administered on 11/01/18 08:10; Admin Dose 1 GM; Start 10/28/18 at 09:30 Hydralazine HCl (Apresoline) 10 mg Q4H PRN IV ELEVATED BLOOD PRESSURE Last administered on 10/29/18 23:47; Admin Dose 10 MG; Start 10/28/18 at 20:00 Calcium Acetate (Phoslo) 1,334 mg WITH MEALS PO Last administered on 11/01/18 08:11; Admin Dose 1,334 MG; Start 10/29/18 at 17:55 Escitalopram Oxalate (Lexapro) 10 mg DAILY PO Last administered on 11/01/18 08:11; Admin Dose 10 MG; Start 10/29/18 at 15:30 Furosemide (Lasix) 80 mg DAILY PO Last administered on 11/01/18 08:11; Admin Dose 80 MG; Start 10/29/18 at 15:30 Gabapentin (Neurontin) 100 mg DAILY PO Last administered on 11/01/18 08:10; Admin Dose 100 MG; Start 10/29/18 at 15:30 Losartan Potassium (Cozaar) 50 mg BID PO Last administered on 10/31/18 20:28; Admin Dose 50 MG; Start 10/29/18 at 21:00 Metoprolol Succinate (Toprol Xl) 50 mg DAILY PO Last administered on 10/30/18 09:14; Admin Dose 50 MG; Start 10/29/18 at 15:30 Multivit/Ca Carb/ B Cmplx/FA/Prenat (Marilee-Rocío) 1 tab DAILY PO Last administered on 8/14/19at 08:11; Admin Dose 1 TAB; Start 10/29/18 at 15:30 Nifedipine (Procardia Xl) 60 mg BID PO Last administered on 10/31/18at 20:28; Admin Dose 60 MG; Start 10/29/18 at 21:00 Albuterol/ Ipratropium (Duoneb) 3 ml Q6H RESP THERAPY HHN Last administered on 11/01/18at 09:36; Admin Dose 3 ML; Start 10/30/18 at 14:00 Budesonide (Pulmicort (Neb)) 0.5 mg BID RESP THERAPY HHN Last administered on 11/01/18at 09:36; Admin Dose 0.5 MG; Start 10/30/18 at 20:00 Sodium Chloride 1,000 ml @ 30 mls/hr Q24H IV Last administered on 10/31/18at 00:09; Admin Dose 30 MLS/HR; Start 10/30/18 at 11:00 Levofloxacin (Levaquin) 500 mg Q48H PO ; Start 11/02/18 at 14:00 Pantoprazole (Protonix Tab) 40 mg DAILY PO ; Start 11/02/18 at 09:00 AMALIA HAND Nov 01, 2018 10:28
[2018-11-01] MEDS: SOD CHLORIDE 0.45% 1,000 ML IV SCH (11:00)
--- NOTE | 2018-11-01 11:04 | PDOCDIS ---
Discharge Instructions CONDITION [id number] Patient Condition: [id number] Stable FOLLOW UP/APPOINTMENTS Follow-up Plan 1. Please follow-up with your primary care provider as soon as possible 2. Please resume your normal dialysis schedule 3. Please take antibiotic only on dates provided, beginning on November 02, 2018 and taking every other day, if taken on dialysis day, take after dialysis 4. Please stop ranitidine, start new medication provided. 5. Please use home oxygen at all times. 1.YOU HAVE RECEIVED A MEDICAL TREATMENT AT [facility] AND YOUR CONDITION IS STABLE AND YOU CAN BE FOLLOWED UP IN THE OUTPATIENT SETTING. IT IS RECOMMENDED YOU BE SEEN IN YOUR DOCTORS OFFICE WITHIN THE NEXT 1-2 DAYS. IT IS YOUR RESPONSIBILITY TO MAKE AN APPOINTMENT FOR FOLLOW-UP CARE. IF YOU HAVE A PRIMARY DOCTOR --you should call your primary doctor WITHIN 1-2 days and schedule an appointment IF YOU DO NOT HAVE A PRIMARY DOCTOR YOU CAN CALL OUR PHYSICIAN REFERRAL HOTLINE AT IF YOU CAN NOT AFFORD TO SEE A PHYSICIAN YOU CAN CHOSE FROM THE FOLLOWING [facility] [address] [facility]. [facility] [address] [facility] [address] [facility]. [facility] [address] [facility] [address] [facility]. [facility]. [address] LM RIOS Nov 01, 2018 11:04
--- NOTE | 2018-11-01 11:11 | DS ---
Date/Time of Note Date/Time of Note DATE: 11/01/18 TIME: 11:10 Discharge Summary Admission/Discharge Info Admit Date/Time Oct 28, 2018 at 04:11 Discharge Date/Time Patient Condition: Stable Hospital Course Patient is Icelandic male with a past medical history significant for chronic respiratory distress secondary to end-stage renal disease and COPD who presents to [facility] for acute shortness of breath. Patient was seen by both nephrology and pulmonology. Patient was aggressively diuresed. As patient continued his admission and after speaking with the patient with an Icelandic veneer clipper became more more apparent that patient's acute shortness of breath is highly likely due to patient not being fully compliant with patient's home oxygen. Patient does have a history of COPD and pulmonary edema secondary to end-stage renal disease and he states that although he has been ordered to use 2 to 3 L of oxygen at home he routinely takes off his oxygen and goes to work and then comes back and then puts it back on. I explained to the patient that this is likely the reason why he had respiratory problems to begin with. Patient understands to use home oxygen at all time. Patient was aggressively diuresed and enough fluid was taken out per nephrology, patient had a questionable infiltrate on chest x-ray and will be given a antibiotic to be finished in the outpatient setting. The diagnosis of pneumonia is questionable due to minimal respiratory complaints, no cough, no fever however but given x- ray findings and patient being end-stage renal disease patient on hemodialysis, patient would benefit from finishing a short course of antibiotics for possible healthcare associated pneumonia. Patient also had upper endoscopy during the stay due to complaints of epigastric pain which found mild gastritis, patient is completely abdominal pain-free and will be discharged on a PPI. Patient is feeling well and will follow up with his quality control tester and primary care provider for his regular scheduled visits. Family also knows to follow-up with biopsy results from EGD. I spoke to patient and patient's daughter who knows to inform PCP to get records and to treat if H. pylori is present from biopsy. Discharge diagnosis Acute on chronic respiratory distress, on home O2 chronically, resolving resolved at baseline Questionable healthcare associated pneumonia Acute epigastric discomfort, resolved COPD exacerbation, resolved End-stage renal disease on hemodialysis Hyperkalemia, resolving Anemia of chronic disease Gastritis Home Meds Active Scripts Pantoprazole* (Protonix*) 40 Mg Tablet.dr, 40 MG PO QAM, #30 TAB Altervatives: omeprazole 20mg po qam30 tabs, 1 refill lansoprazole 15mg po qam, 30 caps, 1 refill esomeprazole 20 mg po qam, 30 caps, 1 refill Prov:LM ALEXANDRE 11/01/18 Levofloxacin* (Levaquin*) 500 Mg Tablet, 500 MG PO Q48H, #3 TAB Please take on 11/02, 11/04, and 11/06 only. If on a dialysis day, please take after dialysis Prov:LM ALEXANDRE J 11/01/18 Reported Medications Multivit/Ca Carb/B Cmplx/Fa* (Marilee-Rocío*) 1 Tab Tab, 1 TAB PO DAILY, TAB 10/29/18 Escitalopram Oxalate* (Lexapro*) 10 Mg Tablet, 10 MG PO DAILY, #30 TAB 10/29/18 Nifedipine* (Nifedipine ER*) 60 Mg Tablet.sa, 60 MG PO BID, TAB.SA 10/29/18 Metoprolol Succinate* (Toprol XL*) 50 Mg Tab.er.24h, 50 MG PO DAILY, #30 TAB 10/29/18 Gabapentin* (Neurontin*) 100 Mg Capsule, 100 MG PO DAILY, #90 CAP 10/29/18 Calcium Acetate* (Calcium Acetate*) 667 Mg Capsule, 667 MG PO WITH MEALS, #30 CAP 10/29/18 Furosemide* (Furosemide*) 80 Mg Tablet, 80 MG PO DAILY, #30 TAB 10/29/18 Losartan Potassium* (Losartan Potassium*) 50 Mg Tablet, 50 MG PO BID, TAB 10/29/18 Discontinued Reported Medications Ranitidine Hcl* (Ranitidine Hcl*) 150 Mg Tablet, 150 MG PO BID, #60 TAB 10/29/18 Follow-up Plan 1. Please follow-up with your primary care provider as soon as possible 2. Please resume your normal dialysis schedule 3. Please take antibiotic only on dates provided, beginning on November 02, 2018 and taking every other day, if taken on dialysis day, take after dialysis 4. Please stop ranitidine, start new medication provided. 5. Please use home oxygen at all times. 6. please follow up with upper endoscopy biopsy results, please ask your primary doctor to get records of the biopsy. 1.YOU HAVE RECEIVED A MEDICAL TREATMENT AT [facility] AND YOUR CONDITION IS STABLE AND YOU CAN BE FOLLOWED UP IN THE OUTPATIENT SETTING. IT IS RECOMMENDED YOU BE SEEN IN YOUR DOCTORS OFFICE WITHIN THE NEXT 1-2 DAYS. IT IS YOUR RESPONSIBILITY TO MAKE AN APPOINTMENT FOR FOLLOW-UP CARE. IF YOU HAVE A PRIMARY DOCTOR --you should call your primary doctor WITHIN 1-2 days and schedule an appointment IF YOU DO NOT HAVE A PRIMARY DOCTOR YOU CAN CALL OUR PHYSICIAN REFERRAL HOTLINE AT IF YOU CAN NOT AFFORD TO SEE A PHYSICIAN YOU CAN CHOSE FROM THE FOLLOWING [facility] [address] [facility] [address] [facility] [address] [facility] [address] [facility] [address] [facility]. [facility] [address] Primary Care Provider Care Physician No Primary Time spent on discharge: > 30 minutes Pending Labs Laboratory Tests Test 11/01/18 06:47 White Blood Count 6.8 10^3/ul (4.8-10.8) Red Blood Count 2.76 10^6/ul (4.70-6.10) Hemoglobin 9.3 g/dl (14.0-18.0) Hematocrit 29.5 % (42.0-52.0) Mean Corpuscular Volume 106.9 fl (82.0-101.0) Mean Corpuscular Hemoglobin 33.7 pg (29.0-33.0) Mean Corpuscular Hemoglobin Concent 31.5 g/dl (32.0-37.0) Red Cell Distribution Width 14.5 % (11.5-14.5) Platelet Count 159 10^3/UL (140-415) Mean Platelet Volume 10.3 fl (7.4-10.4) Immature Granulocytes % 1.300 % (0.001-0.429) Neutrophils % 74.1 % (39.0-77.0) Lymphocytes % 14.4 % (15.0-51.0) Monocytes % 9.9 % (0.0-11.0) Eosinophils % 0.0 % (0.0-7.0) Basophils % 0.3 % (0.0-2.0) Nucleated Red Blood Cells % 0.0 /100WBC (0.0-0.0) Immature Granulocytes # 0.090 10^3/ul (0.0-0.031) Neutrophils # 5.0 10^3/ul (1.6-7.5) Lymphocytes # 1.0 10^3/ul (0.8-2.9) Monocytes # 0.7 10^3/ul (0.3-0.9) Eosinophils # 0.0 10^3/ul (0.0-0.5) Basophils # 0.0 10^3/ul (0.0-0.1) Nucleated Red Blood Cells # 0.0 10^3/ul (0.0-0.0) Sodium Level 139 mmol/L (135-144) Potassium Level 5.4 mmol/L (3.5-5.1) Chloride Level 99 mmol/L (97-110) Carbon Dioxide Level 29 mmol/L (21-31) Anion Gap 11 (5-13) Blood Urea Nitrogen 66 mg/dl (7-20) Creatinine 10.08 mg/dl (0.61-1.24) Est Glomerular Filtrat Rate mL/min mL/min (>60) Glucose Level 102 mg/dl (70-220) Calcium Level 8.5 mg/dl (8.4-10.2) Phosphorus Level 7.6 mg/dl (2.5-4.9) Magnesium Level 1.9 mg/dl (1.7-2.5) LM ALEXANDRE Nov 01, 2018 11:11
[2018-11-01] MEDS ORDERED: LEVOFLOXACIN 500 MG TAB PO SCH (14:00)
--- NOTE | 2018-11-01 14:24 | CONS ---
Assessment/Plan Assessment/Plan Assessment/Plan (Daily) 1. End-stage renal disease.ON hd 2. Hyperkalemia. K 6.3 3. SOB of breath due to pulmonary edema/COPD 4. Hypertension. 5. Anemia of chronic kidney disease. 7. HYPERTHYROIDISM 8. Overweight 9 Epigastric pain pending EGD today Assessment/Plan (Daily) -HD today -With losartan/nifedipine/Lasix 80/Metoprolol -Renally dose all meds. dc planning Consultation Date/Type/Reason Admit Date/Time Oct 28, 2018 at 04:11 Initial Consult Date 10/30/18 Requesting Provider: ANGELA ATWOOD MD Date/Time of Note DATE: 11/01/18 TIME: 14:22 24 HR Interval Summary Free Text/Dictation HD planned today. This post EGD yesterday Exam/Review of Systems Exam Vitals Vital Signs Date Temp Pulse Resp B/P (MAP) Pulse Ox O2 O2 Flow FiO2 Time Delivery Rate 11/01/18 93 3.0 14:01 11/01/18 79 18 Nasal 14:01 Cannula 11/01/18 97.3 117/57 11:34 (77) Intake and Output 10/31/18 10/31/18 11/01/18 1515:00 23:00 07:00 IntakeIntake Total 450 ml BalanceBalance 450 ml Exam o acute distress, no events overnight. Neck: supple, no thyromegaly, no carotid bruits Lungs: clear bilaterally, decreased. CVS: regular rate and rhythm, no murmurs Abdomen: soft, bowel sounds present. Extremities: no edema Neuro: alert and oriented x 3 Skin: no lesions, left arm AV fistula Results Result Diagram: 11/01/18 0647 11/01/18 0647 Results 24hrs Laboratory Tests Test 11/01/18 06:47 White Blood Count 6.8 Red Blood Count 2.76 L Hemoglobin 9.3 L Hematocrit 29.5 L Mean Corpuscular Volume 106.9 H Mean Corpuscular Hemoglobin 33.7 H Mean Corpuscular Hemoglobin Concent 31.5 L Red Cell Distribution Width 14.5 Platelet Count 159 Mean Platelet Volume 10.3 Immature Granulocytes % 1.300 H Neutrophils % 74.1 Lymphocytes % 14.4 L Monocytes % 9.9 Eosinophils % 0.0 Basophils % 0.3 Nucleated Red Blood Cells % 0.0 Immature Granulocytes # 0.090 H Neutrophils # 5.0 Lymphocytes # 1.0 Monocytes # 0.7 Eosinophils # 0.0 Basophils # 0.0 Nucleated Red Blood Cells # 0.0 Sodium Level 139 Potassium Level 5.4 H Chloride Level 99 Carbon Dioxide Level 29 Anion Gap 11 Blood Urea Nitrogen 66 H Creatinine 10.08 #H Est Glomerular Filtrat Rate mL/min Glucose Level 102 # Calcium Level 8.5 Phosphorus Level 7.6 H Magnesium Level 1.9 Medications Medication Current Medications IV Flush (NS 3 ml) 3 ml PER PROTOCOL IV ; Start 10/28/18 at 05:00 Ondansetron HCl (Zofran Inj) 4 mg Q6H PRN IV NAUSEA/VOMITING; Start 10/28/18 at 05:00 Acetaminophen (Tylenol Tab) 650 mg Q6H PRN PO .PAIN 1-3 OR TEMP; Start 10/28/18 at 05:00 Docusate Sodium (Colace) 100 mg Q12H PRN PO .CONSTIPATION; Start 10/28/18 at 05:00 Bisacodyl (Dulcolax) 5 mg DAILY PRN PO .CONSTIPATION; Start 10/28/18 at 05:00 Heparin Sodium (Porcine) (Heparin (5000 Units/1ml)) 5,000 unit Q8 SC Last administered on 11/01/18 13:16; Admin Dose 5,000 UNIT; Start 10/28/18 at 06:00 Sucralfate (Carafate) 1 gm QID PO Last administered on 11/01/18 13:10; Admin Dose 1 GM; Start 10/28/18 at 09:30 Hydralazine HCl (Apresoline) 10 mg Q4H PRN IV ELEVATED BLOOD PRESSURE Last administered on 10/29/18at 23:47; Admin Dose 10 MG; Start 10/28/18 at 20:00 Calcium Acetate (Phoslo) 1,334 mg WITH MEALS PO Last administered on 11/01/18 13:11; Admin Dose 1,334 MG; Start 10/29/18 at 17:55 Escitalopram Oxalate (Lexapro) 10 mg DAILY PO Last administered on 11/01/18 08:11; Admin Dose 10 MG; Start 10/29/18 at 15:30 Furosemide (Lasix) 80 mg DAILY PO Last administered on 11/01/18 08:11; Admin Dose 80 MG; Start 10/29/18 at 15:30 Gabapentin (Neurontin) 100 mg DAILY PO Last administered on 11/01/18 08:10; Admin Dose 100 MG; Start 10/29/18 at 15:30 Losartan Potassium (Cozaar) 50 mg BID PO Last administered on 10/31/18 20:28; Admin Dose 50 MG; Start 10/29/18 at 21:00 Metoprolol Succinate (Toprol Xl) 50 mg DAILY PO Last administered on 10/30/18 09:14; Admin Dose 50 MG; Start 10/29/18 at 15:30 Multivit/Ca Carb/ B Cmplx/FA/Prenat (Marilee-Rocío) 1 tab DAILY PO Last administered on 11/01/18 08:11; Admin Dose 1 TAB; Start 10/29/18 at 15:30 Nifedipine (Procardia Xl) 60 mg BID PO Last administered on 10/31/18 20:28; Admin Dose 60 MG; Start 10/29/18 at 21:00 Albuterol/ Ipratropium (Duoneb) 3 ml Q6H RESP THERAPY HHN Last administered on 11/01/18 14:01; Admin Dose 3 ML; Start 10/30/18 at 14:00 Budesonide (Pulmicort (Neb)) 0.5 mg BID RESP THERAPY HHN Last administered on 11/01/18 09:36; Admin Dose 0.5 MG; Start 10/30/18 at 20:00 Sodium Chloride 1,000 ml @ 30 mls/hr Q24H IV Last administered on 10/31/18 00:09; Admin Dose 30 MLS/HR; Start 10/30/18 at 11:00 Levofloxacin (Levaquin) 500 mg Q48H PO ; Start 11/02/18 at 14:00 Pantoprazole (Protonix Tab) 40 mg DAILY PO ; Start 11/02/18 at 09:00 SHIRA SHAW MD Nov 01, 2018 14:24
[2018-11-02] MEDS ORDERED: PANTOPRAZOLE (EC) 40 MG TAB PO SCH (09:00)
[2018-11-02] MEDS ORDERED: LEVOFLOXACIN 500 MG TAB PO SCH (14:00)
--- NOTE | 2018-11-06 14:34 | HP ---
Date/Time of Note Date/Time of Note DATE: 10/28/18 TIME: 07:58 Assessment/Plan VTE Prophylaxis SCD applied (from Nsg): Yes Pharmacological prophylaxis: NA/contraindicated Pharm contraindication: low risk/ambulating Lines/Catheters IV Catheter Type (from Nrsg): Saline Lock Assessment/Plan Hospital Course This is a 78-year-old male being admitted to the telemetry floor for: #1 acute respiratory failure: Likely multifactorial secondary to underlying COPD exacerbation/possible volume overload from end-stage renal disease. Patient was able to wean off of the BiPAP. Will put the patient on steroids and serial nebs. Will consult nephrology for dialysis. #2 acute COPD exacerbation: Scheduled steroids, serial nebs. #3 end-stage renal disease: On HD Tuesday. Patient has signs of possible volume overload. Will consult nephrology Dr. Cornell for dialysis today. Passing 5.2 BUN creatinine 67/9.6 respectively avoid nephrotoxic agents. #4 hypertension: We will need to confirm patient's home medications and resume #5 DVT GI prophylaxis: Heparin, Protonix Further treatment strategy will be implemented as per the clinical course Result Diagram: 10/28/18 0136 10/28/18 0136 Results 24hrs Laboratory Tests Test 10/28/18 01:36 10/28/18 02:30 White Blood Count 7.5 Red Blood Count 2.64 L Hemoglobin 8.9 L Hematocrit 27.6 L Mean Corpuscular Volume 104.5 H Mean Corpuscular Hemoglobin 33.7 H Mean Corpuscular Hemoglobin Concent 32.2 Red Cell Distribution Width 14.1 Platelet Count 153 Mean Platelet Volume 10.3 Immature Granulocytes % 0.400 Neutrophils % 73.4 Lymphocytes % 17.9 Monocytes % 7.8 Eosinophils % 0.0 Basophils % 0.5 Nucleated Red Blood Cells % 0.0 Immature Granulocytes # 0.030 Neutrophils # 5.5 Lymphocytes # 1.4 Monocytes # 0.6 Eosinophils # 0.0 Basophils # 0.0 Nucleated Red Blood Cells # 0.0 Prothrombin Time 14.3 Prothrombin Time Ratio 1.1 INR International Normalized Ratio 1.10 Activated Partial Thromboplast Time 33.7 Sodium Level 140 Potassium Level 5.2 H Chloride Level 100 Carbon Dioxide Level 30 Anion Gap 10 Blood Urea Nitrogen 67 H Creatinine 9.60 H Est Glomerular Filtrat Rate mL/min Glucose Level 131 Calcium Level 9.1 Phosphorus Level 4.3 Total Bilirubin 0.4 Direct Bilirubin 0.00 Indirect Bilirubin 0.4 Aspartate Amino Transf (AST/SGOT) 37 Alanine Aminotransferase (ALT/SGPT) 36 Alkaline Phosphatase 90 Troponin I 0.015 Total Protein 6.9 Albumin 3.8 Globulin 3.10 Albumin/Globulin Ratio 1.22 Blood Gas Specimen Source Blood arterial Arterial Blood Date Drawn 10/28/2018 2:30:51 AM Arterial Blood pH (Temp corrected) 7.440 Arterial Blood pCO2 (Temp correct) 41.0 Arterial Blood pO2 (Temp corrected) 138.9 H Arterial Blood HCO3 27.2 H Arterial Blood Base Excess 2.8 Arterial Blood Oxygen Saturation 98.3 Kraig Test ACCEPTAB Arterial Blood Gas Puncture Site Right Radial Arterial Blood Carboxyhemoglobin 0.3 Arterial Blood Methemoglobin 0.5 Blood Gas A-a O2 Differential 171.5 H Oxyhemoglobin Percent 97.5 Blood Gas Temperature 37.0 Blood Gas Respiration Rate 20.0 Blood Gas Actual Respiration Rate 20 Blood Gas Modality MASK - BIPAP FiO2 50.0 Blood Gas Pressure Support 10 Blood Gas IPAP/EPAP Ratio 15/5 Blood Gas Critical Value Read Back ANGEL Rosa MD Blood Gas Notified Whom KB Blood Gas Notified Time 10/28/2018 2:41:33 AM HPI/ROS Admit Date/Time Admit Date/Time Hx of Present Illness Chief complaint: Shortness of breath The following history was obtained from the ED physician documentation as the patient was a poor historian and there was leg which barrier. This is a 78-year-old male with a past medical history of emphysema, end-stage renal disease on dialysis Tuesday, hypertension who presented to the emergency department with complaints of shortness of breath occurring approximately 2 hours prior to arrival to the ER. Patient was noted to be in respiratory distress upon arrival. He was also noted to be wheezing. He was put on a BiPAP with eventual weaning from that. Patient is due for dialysis today. Upon my examination the patient. He did appear to be improved. There was decreased air movement bilaterally. Allergies: Unknown Medications: Unknown ROS Const: As per HPI Eyes : No pain discharge or redness or change in visual acuity ENT: No pain, sore throat, congestion, congestion, dysphagia or discharge Respiratory: As per HPI Cardiovascular: No chest pain, palpitation, PND, or edema GI : no change in appetite, abdominal pain, nausea, vomiting, diarrhea, constipation, or change in the color his stool Genitourinary: No dysuria, hematuria, flank pain , discharge or CVA tenderness Musculoskeletal: No joint pain, back pain, neck pain, restricted range of motion in neck or joints Skin: No rash, bruising or hives Neuro: No headache, dizziness, syncope, seizure, focal weakness Endocrine: No polyuria, polydipsia, temperature intolerance Psych: No hallucination, depression, anxiety or suicidal ideation PMH/Family/Social Past Medical History COPD End-stage renal disease on HD Tuesday Hypertension Medications Current Medications IV Flush (NS 3 ml) 3 ml PER PROTOCOL IV ; Start 10/28/18 at 05:00 Ondansetron HCl (Zofran Inj) 4 mg Q6H PRN IV NAUSEA/VOMITING; Start 10/28/18 at 05:00 Acetaminophen (Tylenol Tab) 650 mg Q6H PRN PO .PAIN 1-3 OR TEMP; Start 10/28/18 at 05:00 Docusate Sodium (Colace) 100 mg Q12H PRN PO .CONSTIPATION; Start 10/28/18 at 05:00 Bisacodyl (Dulcolax) 5 mg DAILY PRN PO .CONSTIPATION; Start 10/28/18 at 05:00 Heparin Sodium (Porcine) (Heparin (5000 Units/1ml)) 5,000 unit Q8 SC Last administered on 10/28/18at 05:18; Admin Dose 5,000 UNIT; Start 10/28/18 at 06:00 Albuterol/ Ipratropium (Duoneb) 3 ml Q4H RESP THERAPY HHN ; Start 10/28/18 at 09:00 Methylprednisolone Sodium Succinate (Solu-Medrol) 30 mg Q8 IV ; Start 10/28/18 at 14:00 Coded Allergies: Unknown: Unable to obtain (Unverified , 10/28/18) Past Surgical History left upper extremity AV fistula Family History Significant Family History: no pertinent family hx Social History Smoking Status: Unknown if ever smoked Exam/Review of Systems Vital Signs Vitals Vital Signs Date Temp Pulse Resp B/P (MAP) Pulse Ox O2 O2 Flow FiO2 Time Delivery Rate 10/28/18 81 17 131/53 95 Nasal 07:00 (79) Cannula 10/28/18 8.0 02:54 10/28/18 50 01:20 10/28/18 98.5 01:13 Exam Exam General: Patient is currently lying in bed, he does have mild increased work of breathing but he does appear to be improved since arriving to the emergency department. HEENT: Atraumatic, normocephalic. The pupils are equal, round and reactive. Extraocular motor are intact Neck: Supple with full range of motion. No rigidity or meningismus Chest: Nontender Lungs: Decreased air movement bilaterally, increased work of breathing Heart: Normal S1-S2, Regular rhythm and rate. Abdomen: Soft , nontender, nondistended , bowel sounds are present. No guarding no rebound tenderness , No masses or organomegaly. No costovertebral temporal angle mass Extremities: Normal to inspection, no edema no cyanosis, left upper extremity AV fistula Neurologic: Normal mental status, speech normal, cranial nerves II through XII are intact, motor and sensory are intact, Additional Comments EKG: Rate/Rhythm: Normal Sinus Rhythm 84 beats/min QRS, ST, T-waves: No ST elevation, no T inversion Impression: Normal EKG PROCEDURE: Single view chest. CLINICAL INDICATION: Shortness of breath TECHNIQUE: Single view of the chest was obtained COMPARISON: None. FINDINGS: There is generalized interstitial prominence and bronchial wall thickening in the perihilar regions and lung bases. Costophrenic blunting and probable small bilateral effusions. Cardiac silhouette and mediastinal contours are unremarkable. There are atherosclerotic calcifications at the aortic arch. Degenerative marginal spurring throughout the thoracic spine, regional bones otherwise appear intact. IMPRESSION: Interstitial prominence and bronchial wall thickening compatible with mild edema versus inflammation. Probable small bilateral effusions. Aortic atherosclerosis. RPTAT: [facility] Physician Bassam Date Time Electronically viewed and signed by Physician Bassam on 10/28/2018 03:01 xB/ CC: THIERRY ORTIZ MD [id number] MICAH DENNISON Oct 28, 2018 08:09
== END 2018-11-01 22:18 | disposition home or self-care (01) | DRG 190 ==
LOC: E/R 01:06 → TEL 04:11
PROVIDERS: ADMIT Family Medicine; ATTEND Internal Medicine
PROC: 5A1D70Z Performance of Urinary Filtration, Intermittent, Less than 6 Hours Per Day (ICD-10-PCS; 2018-10-28)
PROC: 5A09357 Assistance with Respiratory Ventilation, Less than 24 Consecutive Hours, Continuous Positive Airway Pressure (ICD-10-PCS; 2018-10-28)
PROC: 3E0F7GC Introduction of Other Therapeutic Substance into Respiratory Tract, Via Natural or Artificial Opening (ICD-10-PCS; 2018-10-28)
PROC: 5A1D70Z Performance of Urinary Filtration, Intermittent, Less than 6 Hours Per Day (ICD-10-PCS; 2018-10-29)
PROC: 5A1D70Z Performance of Urinary Filtration, Intermittent, Less than 6 Hours Per Day (ICD-10-PCS; 2018-10-31)
PROC: 0DB68ZX Excision of Stomach, Via Natural or Artificial Opening Endoscopic, Diagnostic (ICD-10-PCS; principal; 2018-10-31 16:30)
DX: J44.1 Chronic obstructive pulmonary disease with (acute) exacerbation (principal); N18.6 End stage renal disease; J18.9 Pneumonia, unspecified organism; J96.01 Acute respiratory failure with hypoxia; I13.2 Hypertensive heart and chronic kidney disease with heart failure and with stage 5 chronic kidney disease, or end stage renal disease; K92.1 Melena; E87.5 Hyperkalemia; E87.70 Fluid overload, unspecified; D69.6 Thrombocytopenia, unspecified; G62.9 Polyneuropathy, unspecified; I50.9 Heart failure, unspecified; E05.90 Thyrotoxicosis, unspecified without thyrotoxic crisis or storm; D63.8 Anemia in other chronic diseases classified elsewhere; D63.1 Anemia in chronic kidney disease; K29.70 Gastritis, unspecified, without bleeding; Z99.2 Dependence on renal dialysis; Z68.28 Body mass index [BMI] 28.0-28.9, adult; R10.13 Epigastric pain; Y95 Nosocomial condition
CPT/HCPCS: 36415; 36600; 71045; 80048; 80053; 80061; 82306; 82607; 82746; 82803; 82962; 83036; 83735; 84100; 84443; 84484; 85025; 85610; 85730; 87340; 88305; 88312; 90935; 93005; 94640; 94660; 94664; 97161; J0360; J1644; J1815; J1956; J2920; J2930